=== PATIENT | male | born 1925 | race Caucasian/White ===

== ENCOUNTER 2017-03-25 01:14 | Inpatient (IN) | payer MEDICARE, BC ==
[2017-03-25] VITALS (8 sets, daily range): BP systolic 136–154; BP diastolic 70–77; PULSE 56–63; RESP 16–18; TEMP 98.6; Ht 167.6 cm; Wt 74.0 kg
[~2017-03-25] VITALS: Ht 167.6 cm; Wt 74.0 kg
[2017-03-25] MEDS ORDERED: niCARdipine-NS 0.1MG/ML DRIP 200 ML IV STA (01:29)
[2017-03-25] MEDS ORDERED: LABETALOL HCL 20MG INJ IV PRN (01:30)
--- NOTE | 2017-03-25 01:38 | RADRPT ---
PROCEDURE: CT Brain without contrast. CLINICAL INDICATION: Altered level of consciousness. TECHNIQUE: A CT of the brain was performed on a multislice detector CT scanner utilizing axial sec tions from the skull base through the vertex without contrast. Images were [facility] a [facility] [employer] PACS workstation. Exam CTDlvol = 44 mGy and DLP = 110 mGy-cm. One of the following 3 dose red uction techniques were used: Automated exposure control; adjustment of the mA and/or kV according to patient size; or use of iterative reconstruction technique. COMPARISON: None available FINDINGS: There is age appropriate central and peripheral atrophy. There is no midline shift. There is a mod erate degree of supratentorial periventricular and subcortical white matter hypodensities. There is no definite acute stroke. There is a 1.6 x 1.4 x 1.6 cm cortical and subcortical subcortical hyperd ense/acute intraparenchymal hemorrhage with minimal surrounding edema in the posterior left frontal lobe at the vertex.. There is no significant mass effect. There is no other intracranial hemorrhage or abnormal extra-axial fluid collection. There is a punctate left parietal cortical calcification. Visualized paranasal sinuses are clear. IMPRESSION: 1. Acute intraparenchymal left frontal hemorrhage near the vertex. Minimal surrounding edema. No si gnificant mass effect. 2. Nonspecific white matter changes most commonly seen with microvascular ischemic disease. 3. Nonspecific punctate left parietal cortical calcification most commonly seen post inflammatory o r infectious such as cysticercosis. Findings reported to Dr. Su on 03/25/2017 1:34 AM. RPTAT: HMVK .Blake Kahn MD, MD Date Time Electronically viewed and signed by .Blake Kahn MD, MD on 03/25/2017 01:38 .K/
[2017-03-25] MEDS ORDERED: niCARdipine-NS 0.1MG/ML DRIP 200 ML IV SCH (02:00)
[2017-03-25 02:09] LABS: BASOPHILS % 0.4 % (0.0-2.0); EOSINOPHILS # 0.1 10^3/ul (0.0-0.5); HEMATOCRIT 38.9 % (42.0-52.0); HEMOGLOBIN 13.1 g/dl (14.0-18.0); LYMPHOCYTES # 1.7 10^3/ul (0.8-2.9); LYMPHOCYTES % 24.6 % (15.0-51.0); MEAN CORPUSCULAR HEMOGLOBIN 32.6 pg (29.0-33.0); MEAN CORPUSCULAR HGB CONC 33.7 g/dl (32.0-37.0); MEAN CORPUSCULAR VOLUME 96.8 fl (82.0-101.0); MEAN PLATELET VOLUME 10.8 fl (7.4-10.4); MONOCYTE # 0.8 10^3/ul (0.3-0.9); MONOCYTES % 11.7 % (0.0-11.0); NEUTROPHILS % 60.7 % (39.0-77.0); PLATELET COUNT 205 10^3/UL (140-415); RED BLOOD COUNT 4.02 10^6/ul (4.70-6.10); RED CELL DISTRIBUTION WIDTH 12.9 % (11.5-14.5); WHITE BLOOD COUNT 6.8 10^3/ul (4.8-10.8)
[2017-03-25 02:23] LABS: INR 1.05; PROTIME 13.7 Sec (12.2-14.2); PT RATIO 1.1
[2017-03-25 02:24] LABS: PARTIAL THROMBOPLASTIN TIME 30.7 Sec (25.0-35.0)
[2017-03-25 02:25] LABS: ANION GAP 14 (8-16); BLOOD UREA NITROGEN 35 mg/dl (7-20); CALCIUM 9.4 mg/dl (8.4-10.2); CARBON DIOXIDE 26 mmol/L (21-31); CHLORIDE 103 mmol/L (97-110); GLUCOSE 97 mg/dl (70-220); POTASSIUM 4.6 mmol/L (3.5-5.1); SODIUM 138 mmol/L (135-144)
[2017-03-25] MEDS ORDERED: SOD CHLORIDE 0.9% 1,000 ML IV SCH (02:31)
[2017-03-25 02:36] LABS: TROPONIN-I < 0.012 ng/ml (0.00-0.12)
--- NOTE | 2017-03-25 02:39 | RADRPT ---
PROCEDURE: XR Chest. CLINICAL INDICATION: Shortness of breath. TECHNIQUE: AP Portable chest. COMPARISON: No pertinent prior examinations were submitted for comparison. FINDINGS: There is mild cardiomegaly. There is mild pulmonary vascular congestion. The osseous structures ar e unremarkable. IMPRESSION: Mild pulmonary vascular congestion. RPTAT: HIKT .Rohith Arce MD, MD Date Time Electronically viewed and signed by .Rohith Arce MD, MD on 03/25/2017 02:38 .T/
[2017-03-25 02:41] LABS: ADD UMIC NO; UR ASCORBIC ACID NEGATIVE (NEGATIVE); UR BILIRUBIN (Dip) NEGATIVE (NEGATIVE); UR BLOOD (Dip) NEGATIVE (NEGATIVE); UR CLARITY CLEAR (CLEAR); UR COLOR STRAW (YELLOW); UR GLUCOSE (Dip) NEGATIVE (NEGATIVE); UR KETONES (Dip) NEGATIVE (NEGATIVE); UR LEUKOCYTE ESTERASE (Dip) NEGATIVE Leu/ul (NEGATIVE); UR NITRITE (Dip) NEGATIVE (NEGATIVE); UR SPECIFIC GRAVITY (Dip) 1.008 (1.003-1.030); UR TOTAL PROTEIN (Dip) NEGATIVE (NEGATIVE); UR UROBILINOGEN (Dip) NEGATIVE (NEGATIVE)
[2017-03-25 02:52] LABS: BARBITURATES Negative (NEGATIVE); BENZODIAZEPINES Negative (NEGATIVE); CANNABINOIDS Negative (NEGATIVE); COCAINE Negative (NEGATIVE); OPIATES Negative (NEGATIVE)
[2017-03-25] MEDS ORDERED: ACETAMINOPHEN 325 MG TAB PO PRN (03:00)
[2017-03-25] MEDS ORDERED: ACETAMINOPHEN 650MG/20.3ML CUP PO PRN (03:00)
[2017-03-25] MEDS ORDERED: niCARdipine 25 MG in SOD CHLORIDE 0.9% 240 ML IV SCH (03:00)
[2017-03-25] MEDS ORDERED: LORAZEPAM 2 MG INJ IV PRN ×2 (03:00→21:00)
[2017-03-25] MEDS ORDERED: ONDANSETRON 4 MG INJ IV PRN (03:00)
[2017-03-25] MEDS ORDERED: DOCUSATE SODIUM 100 MG CAP PO PRN (03:00)
--- NOTE | 2017-03-25 03:04 | ERA ---
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 He states around midnight tonight he was tossing and turning and noticed that he could not move his hand. The patient denies any headache. He states that his primary care physician has asked him to stop all blood pressure medications for at least 1-2 months. He denies any chest pain or shortness of breath. No slurred speech. No other neurologic symptoms. ROS All systems reviewed and are negative except as per history of present illness. Allergies Allergies: Coded Allergies: No Known Allergy (Unverified , 03/25/17) PMhx/Soc History of Surgery: Yes (LOW BACK 1970S) Anesthesia Reaction: No Hx 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 Disorder: Yes (CVA 3 YRS AGO) Hx Respiratory Disorders: No Hx Cardiac Disorders: Yes (A-FIB) Hx Psychiatric Problems: No Hx Miscellaneous Medical Probl: Yes (DM 2) Hx Alcohol Use: Yes (OCCASIONAL BEER) Hx Substance Use: No Hx Tobacco Use: No Smoking Status: Never smoker FmHx Family History: No diabetes Physical Exam Vitals Vital Signs Date Time Temp Pulse Resp B/P Pulse Ox O2 Delivery O2 Flow Rate FiO2 03/25/17 02:45 66 12 130/71 96 Room Air 03/25/17 02:30 66 16 132/71 97 Room Air 03/25/17 02:15 68 18 148/76 94 Room Air 03/25/17 02:00 64 13 154/82 97 Room Air 03/25/17 01:46 60 14 199/106 98 Room Air 03/25/17 01:33 66 21 208/116 96 Room Air 03/25/17 01:15 97.7 63 21 195/101 99 03/25/17 01:15 97.7 60 21 195/101 99 Room Air Physical Exam General: Well developed, well nourished, no acute distress Head: Normocephalic, atraumatic Eyes: Pupils equally reactive, EOM intact ENT: Moist mucous membranes Neck: Supple, no lymphadenopathy Respiratory: Lungs clear bilaterally, no distress Cardiovascular: RRR, no murmurs, rubs, or gallops Abdominal: Soft, non-tender, non-distended, no peritoneal signs : Deferred MSK: The patient has decreased function of the right hand that seems limited in range of motion and somewhat flaccid. Neurologic: Alert and oriented, moving all extremities, normal speech, the patient has inability to move his right hand. Otherwise, no pronator drift, no cerebellar signs, patient has facial symmetry NIHSS: 0-1 skin: No rash Psych: Normal mood Result Diagram: 03/25/17 0138 03/25/178 Results 24 hrs Laboratory Tests Test 03/25/17 01:35 03/25/17 01:38 03/25/17 01:51 Urine Color STRAW Urine Clarity CLEAR Urine pH 7.0 Urine Specific [place] 1.008 Urine Ketones NEGATIVEmg/dL Urine Nitrite NEGATIVEmg/dL Urine Bilirubin NEGATIVEmg/dL Urine Urobilinogen NEGATIVEmg/dL Urine Leukocyte Esterase NEGATIVELeu/ul Urine Hemoglobin NEGATIVEmg/dL Urine Glucose NEGATIVEmg/dL Urine Total Protein NEGATIVEmg/dl Urine Opiates Screen Negative Urine Barbiturates Negative Urine Amphetamines Screen Negative Urine Benzodiazepines Screen Negative Urine Cocaine Screen Negative Urine Cannabinoids Negative White Blood Count 6.810^3/ul Red Blood Count 4.0210^6/ul Hemoglobin 13.1g/dl Hematocrit 38.9% Mean Corpuscular Volume 96.8fl Mean Corpuscular Hemoglobin 32.6pg Mean Corpuscular Hemoglobin Concent 33.7g/dl Red Cell Distribution Width 12.9% Platelet Count 49315^3/UL Mean Platelet Volume 10.8fl Neutrophils % 60.7% Lymphocytes % 24.6% Monocytes % 11.7% Eosinophils % 2.0% Basophils % 0.4% Nucleated Red Blood Cells % 0.0/100WBC Neutrophils # (Manual) 4.110^3/ul Lymphocytes # 1.710^3/ul Monocytes # 0.810^3/ul Eosinophils # 0.110^3/ul Basophils # 0.010^3/ul Nucleated Red Blood Cells # 0.010^3/ul Prothrombin Time 13.7Sec Prothrombin Time Ratio 1.1 INR International Normalized Ratio 1.05 Activated Partial Thromboplast Time 30.7Sec Sodium Level 138mmol/L Potassium Level 4.6mmol/L Chloride Level 103mmol/L Carbon Dioxide Level 26mmol/L Anion Gap 14 Blood Urea Nitrogen 35mg/dl Creatinine 1.90mg/dl Glucose Level 97mg/dl Hemoglobin A1c 5.8% Calcium Level 9.4mg/dl Troponin I < 0.012ng/ml Bedside Glucose 103mg/dL Current Medications Medications (Trade) Dose Ordered Sig/Mary Route PRN Reason Start Time Stop Time Status Last Admin Dose Admin Labetalol HCl 20 mg 20 mg Q20M PRN IV ELEVATED BLOOD PRESSURE 03/25/17 01:30 03/25/17 01:30 DC Nicardipine HCl 200 ml @ 50 mls/hr ONCE STAT IV 03/25/17 01:29 03/25/17 01:36 DC 03/25/17 01:45 Nicardipine HCl 200 ml @ 50 mls/hr TITRATE IV 03/25/17 02:00 Sodium Chloride (NS) 1,000 ml @ 70 mls/hr [id number] IV 03/25/17 02:31 03/25/17 02:57 Ondansetron HCl (Zofran Inj) 4 mg Q6H PRN IV NAUSEA AND/OR VOMITING 03/25/17 03:00 Acetaminophen (Tylenol Liquid) 650 mg Q6H PRN PO PAIN LEVEL 1-3 OR FEVER 03/25/17 03:00 Docusate Sodium (Colace) 100 mg Q12H PRN PO CONSTIPATION 03/25/17 03:00 Bisacodyl (Dulcolax) 5 mg DAILY PRN PO CONSTIPATION 03/25/17 03:00 Pantoprazole 40 mg 40 mg DAILY@06 IV 03/25/17 06:00 Nicardipine HCl/ Sodium Chloride (Cardene Iv/NS) 250 ml @ 50 mls/hr PER PROTOCOL IV 03/25/17 03:00 Lorazepam (Ativan) 2 mg PRN PRN IV SEIZURES 03/25/17 03:00 Acetaminophen (Tylenol Tab) 650 mg Q4H PRN PO TEMP GREATER THAN 99.6F 03/25/17 03:00 Docusate Sodium (Colace) 100 mg BID PO 03/25/17 09:00 Procedures/MDM EKG, MONITORS, & DIAGNOSTIC IMAGING: EKG: I reviewed and interpreted a 12-lead EKG. Rhythm: A. fib, rate controlled ectopy: None Arrhythmia: None Intervals: Right bundle branch block ST segments: No elevations or depressions T waves: No contiguous inversions Interpretation: No acute cardiac ischemia Chest x-ray: I reviewed and interpreted a 1 view of the chest Mediastinum: No enlargement Cardiac silhouette: No cardiomegaly Airspace: Clear lung gomez bilaterally without evidence of pneumothorax Bones: No evidence of fracture Interpretation: No acute cardiopulmonary process CT Brain: IMPRESSION: 1. Acute intraparenchymal left frontal hemorrhage near the vertex. Minimal surrounding edema. No significant mass effect. 2. Nonspecific white matter changes most commonly seen with microvascular ischemic disease. 3. Nonspecific punctate left parietal cortical calcification most commonly seen post inflammatory or infectious such as cysticercosis. Findings reported to Dr. Su on 03/25/2017 1:34 AM. RPTAT: HMVK LAB INTERPRETATION: No evidence of coagulopathy MEDICAL DECISION MAKING: The patient presents to the emergency room with acute neurologic deficit starting approximately 1-1/2 hours prior to arrival. This is concerning for stroke. Stroke code activated. Significant hypertension concerning for intracranial hemorrhage. ER COURSE: Stroke assessment and timing: Onset of symptoms: Midnight Arrival to ED: 1:14 AM Stroke code activation: 1:15 AM Patient taken to CT scan: 1:18 AM Patient returns from CT: 1:32 AM Initial neurology evaluation: Not required Conversation(s) with neurology: Not required, initial conversation and Dr. Burks notified at 1:33 AM NIHSS: 0-1 TPA decision-making: Not indicated given intracranial hemorrhage and hemorrhagic stroke Stroke neurologist on-call: Dr. Burks Neurosurgeon on-call, Dr. Zamora conversation at 1:[address] in 6 hours, ICU level of care, blood pressure less than 160, no CTA Critical Care Note: Total time: 58 minutes Indication/Organ System Threat: Acute neurologic deficit and stroke code activation that requires emergent evaluation and assessment to prevent neurologic compromising collapse. I spent the above amount of critical care time with the patient, not including billable procedures. This included chart review, consultations, repeat bedside evaluations, and titration of appropriate medications to prevent cardiopulmonary or respiratory collapse. The patient was started on a Cardene drip with appropriate control of his blood pressure. He continues to mentate well and protect his airway. The patient has no evidence of coagulopathy, no indication for [facility] or platelet transfusion. I kept the patient and/or family informed of laboratory and diagnostic imaging results throughout the emergency room course. DISPOSITION PLAN: Intensive care unit CONSULTATION: Accepting care team and consultations: I discussed the current laboratory data, diagnostic imaging and emergency care provided. Admitting team: Dr. Dillard Admitting team indication: Insurance directed Consulting services: As documented above Departure Diagnosis: Primary Impression: Hemorrhagic stroke Additional Impression: Hypertensive emergency Condition: Critical BOBBI SU MD Mar 25, 2017 03:03
[2017-03-25] MEDS ORDERED: CEFU500T45 PO (04:14)
[2017-03-25] MEDS ORDERED: AMIO200T2 PO (04:14)
[2017-03-25] MEDS ORDERED: LEVO100T87 PO (04:14)
[2017-03-25] MEDS ORDERED: SIMV20TA PO (04:14)
[2017-03-25] MEDS ORDERED: TAMS0.4C2 PO (04:14)
[2017-03-25] MEDS: PANTOPRAZOLE 40 MG INJ IV SCH (05:42)
--- NOTE | 2017-03-25 05:53 | HP ---
Date/Time of Note Date/Time of Note DATE: 03/25/17 TIME: 05:43 Assessment/Plan VTE Prophylaxis VTE Prophylaxis Intervention: SCD's Assessment/Plan Chief Complaint/Hosp Course This is a 89-year-old male being admitted to the ICU floor for: #1. acute intraparenchymal left frontal hemorrhage: Symptoms of right hand limited range of motion. Likely secondary to uncontrolled hypertension. Patient has been off of blood pressure medications for the past 1-2 months. At the current time will keep patient on nicardipine drip to maintain systolic blood pressure less than 160. Keep patient n.p.o. Will transfer patient to ICU for closer monitoring. Repeat CAT scan of the brain in 6 hours without contrast. Neurosurgery on board. #2 uncontrolled hypertension: Once patient's acute condition is stabilized will need to likely reinitiate blood pressure control with medications. #3 hypothyroidism: Check TSH, resume levothyroxine after her swallow eval #4 atrial fibrillation: rate controlled, not an antiocoagulation. resume amiodarone once passes swallow eval. #5 BPH: Hold Flomax for now secondary to blood pressure effects. #6 pulmonary Vascular congestion: possibly secondary to uncontrolled htn, however will check bnp and echocardiogram. #6 hyperlipidemia: Resume statin once patient passes swallow eval. #7 DVT and GI prophylaxis: SCDs, acid mckenna Further treatment strategy will be implemented as per the clinical course Problems: HPI/ROS Admit Date/Time Admit Date/Time Hx of Present Illness Chief complaint: Right hand weakness This is an 89-year-old male history of stroke, atrial fibrillation, no longer taking anticoagulation who presents to the emergency room with loss of function of his right hand. He states around midnight tonight he was tossing and turning in bed and noticed that he could not move his right hand. He denies any headaches. He states that his primary care physician has asked him to stop all blood pressure medications and he has not been taking them for approximately the last 1-2 months. he denies any chest pain or shortness of breath. No slurred speech. He denies any other further neurological symptoms. Allergies: NKDA Medications: See PADMAJA HAMEED Const: As per HPI Eyes : No pain discharge or redness or change in visual acuity ENT: No pain, sore throat, congestion, congestion, dysphagia or discharge Respiratory: No shortness of breath, cough, sputum, wheezing, or pleuritic pain Cardiovascular: No chest pain, palpitation, PND, or edema GI : no change in appetite, abdominal pain, nausea, vomiting, diarrhea, constipation, or change in the color his stool Genitourinary: No dysuria, hematuria, flank pain , discharge or CVA tenderness Musculoskeletal: As per HPI Skin: No rash, bruising or hives Neuro: As per HPI Endocrine: No polyuria, polydipsia, temperature intolerance Psych: No hallucination, depression, anxiety or suicidal ideation PMH/Family/Social Past Medical History Previous hemorrhagic stroke, hypothyroidism, BPH, atrial fibrillation, hypertension, hyperlipidemia Past Surgical History Lower back surgery Family History Significant Family History: cancer (Lung cancer: Mom) Social History Alcohol Use: none Smoking Status: Never smoker Drug Use: none Exam/Review of Systems Vital Signs Vitals Vital Signs Date Time Temp Pulse Resp B/P Pulse Ox O2 Delivery O2 Flow Rate FiO2 03/25/17 04:30 68 17 119/71 97 Room Air 03/25/17 01:15 97.7 Exam Exam General: Patient is a well-developed male lying in bed in no acute distress HEENT: Atraumatic, normocephalic. The pupils are equal, round and reactive. Extraocular motor are intact Neck: Supple with full range of motion. No rigidity or meningismus Chest: Nontender Lungs: Clear to auscultation bilaterally no crackles rales or wheezing Heart: Normal S1-S2, Regular rhythm and rate. No murmur, S3, or S4 Abdomen: Soft , nontender, nondistended , bowel sounds are present. No guarding no rebound tenderness , No masses or organomegaly. No costovertebral temporal angle mass Extremities: Right hand limited range of motion Neurologic: Normal mental status, speech normal, cranial nerves II through XII are intact, motor and sensory are intact, right hand limited range of motion Additional Comments PROCEDURE: CT Brain without contrast. CLINICAL INDICATION: Altered level of consciousness. TECHNIQUE: A CT of the brain was performed on a multislice detector CT scanner utilizing axial sections from the skull base through the vertex without contrast. Images were reviewed on a high-resolution PACS workstation. Exam CTDlvol = 44 mGy and DLP = 110 mGy-cm. One of the following 3 dose reduction techniques were used: Automated exposure control; adjustment of the mA and/or kV according to patient size; or use of iterative reconstruction technique. COMPARISON: None available FINDINGS: There is age appropriate central and peripheral atrophy. There is no midline shift. There is a moderate degree of supratentorial periventricular and subcortical white matter hypodensities. There is no definite acute stroke. There is a 1.6 x 1.4 x 1.6 cm cortical and subcortical subcortical hyperdense/ acute intraparenchymal hemorrhage with minimal surrounding edema in the posterior left frontal lobe at the vertex.. There is no significant mass effect. There is no other intracranial hemorrhage or abnormal extra-axial fluid collection. There is a punctate left parietal cortical calcification. Visualized paranasal sinuses are clear. IMPRESSION: 1. Acute intraparenchymal left frontal hemorrhage near the vertex. Minimal surrounding edema. No significant mass effect. 2. Nonspecific white matter changes most commonly seen with microvascular ischemic disease. 3. Nonspecific punctate left parietal cortical calcification most commonly seen post inflammatory or infectious such as cysticercosis. Findings reported to Dr. Su on 03/25/2017 1:34 AM. RPTAT: HMVK .Blake Kahn MD, MD Date Time Electronically viewed and signed by .Blake Kahn MD, MD on 03/25/2017 01:38 .K/ CC: BOBBI SU MD PROCEDURE: XR Chest. CLINICAL INDICATION: Shortness of breath. TECHNIQUE: AP Portable chest. COMPARISON: No pertinent prior examinations were submitted for comparison. FINDINGS: There is mild cardiomegaly. There is mild pulmonary vascular congestion. The osseous structures are unremarkable. IMPRESSION: Mild pulmonary vascular congestion. RPTAT: HIKT .Rohith Arce MD, MD Date Time Electronically viewed and signed by .Rohith Arce MD, MD on 03/25/2017 02:38 .T/ CC: BOBBI SU MD EKG: . Rhythm: A. fib, rate controlled ectopy: None Arrhythmia: None Intervals: Right bundle branch block ST segments: No elevations or depressions T waves: No contiguous inversions Interpretation: No acute cardiac ischemia As per ED physician documentation Labs Result Diagram: 03/25/178 03/25/17137 Medications Medications Current Medications Nicardipine HCl 200 ml @ 50 mls/hr TITRATE IV ; Start 03/25/17 at 02:00 Sodium Chloride (NS) 1,000 ml @ 70 mls/hr [id number] IV Last administered on 02:57; Admin Dose 70 MLS/HR; Start 03/25/17 at 02:31 Ondansetron HCl (Zofran Inj) 4 mg Q6H PRN IV NAUSEA AND/OR VOMITING; Start 03/25 at 03:00 Acetaminophen (Tylenol Liquid) 650 mg Q6H PRN PO PAIN LEVEL 1-3 OR FEVER; Start 03/25/17 at 03:00 Docusate Sodium (Colace) 100 mg Q12H PRN PO CONSTIPATION; Start 03/25/17 at 03: 00 Bisacodyl (Dulcolax) 5 mg DAILY PRN PO CONSTIPATION; Start 03/25/17 at 03:00 Pantoprazole (Protonix Iv) 40 mg DAILY@06 IV Last administered on 03/25/17 05: 42; Admin Dose 40 MG; Start 03/25/17 at 06:00 Lorazepam (Ativan) 2 mg PRN PRN IV SEIZURES; Start 03/25/17 at 03:00 Acetaminophen (Tylenol Tab) 650 mg Q4H PRN PO TEMP GREATER THAN 99.6F; Start at 03:00 Docusate Sodium (Colace) 100 mg BID PO ; Start 03/25/17 at 09:00 RUTHIE ROBLES Mar 25, 2017 05:53
--- NOTE | 2017-03-25 07:51 | RADRPT ---
PROCEDURE: Noncontrast CT Head. CLINICAL INDICATION: Intracerebral hemorrhage follow-up. TECHNIQUE: Noncontrast CT of the head was obtained. The administered radiation dose was CTDI vol = 43.05 mGy, DLP = 720.23 mGy-cm. One or more of the following dose reduction techniques were used: Au tomated exposure control, Adjustment of the mA and/or kV according to patient size, or Use of iterat jose reconstruction technique. COMPARISON: CT brain 03/25/2017 at 01:23 a.m. FINDINGS: There has been interval there is slight increase in size of the previously seen left posterior front al convexity subcortical intracerebral hemorrhage which currently measures 18 mm x 13 mm x 19 mm (pr eviously 16 mm x 11 mm x 19 mm). Mild surrounding vasogenic edema and mild local mass effect is very slightly increased. There is no midline shift. No new areas of acute intracranial hemorrhage are se en. No abnormal extra-axial collection is seen. The cerebral hobbs-white matter differentiation appea rs preserved. There is mild to moderate diffuse cerebral volume loss. Patchy low attenuation in the periventricular and deep cerebral white matter, nonspecific but sugges tive of moderate chronic microvascular ischemic change. A cortical based punctate calcification in the the left parietal lobe is redemonstrated and nonspeci fic, possibly related to or sequelae of prior inflammation/infection. There is mild diffuse cerebellar volume loss, likely age-related. The brainstem is grossly unremarka ble. The basal cisterns are preserved. There is calcific intracranial atherosclerotic disease involving the internal carotid arteries and p roximal vertebral arteries bilaterally. Limited evaluation of the partially imaged orbits is normal for senescent scleral hyaline plaques. There is mild mucosal thickening in the bilateral ethmoid sinuses. The visualized mastoid air cells are clear. No acute fracture or suspicious osseous lesion is identified. IMPRESSION: 1. Interval minimal increase in size of the previously seen left posterior frontal convexity subcort ical intracerebral hemorrhage, currently measuring 18 mm x 13 mm x 19 mm (previously 16 mm x 11 mm x 19 mm). Mild surrounding vasogenic edema and mild local mass effect is very slightly increased. No midline shift. 2. Evidence of moderate chronic microvascular ischemic change. 3. Redemonstrated nonspecific punctate left parietal cortical calcification, possibly related to bree or inflammation/infection, such as cysticercosis. 4. Intracranial atherosclerotic disease. RPTAT: QQ Leroy Tamayo, Physician Date Time Electronically viewed and signed by Leroy Tamayo, Physician on 03/25/2017 07:51 /
[2017-03-25] MEDS: DOCUSATE SODIUM 100 MG CAP PO SCH ×2 (11:42→21:00)
--- NOTE | 2017-03-25 12:04 | CONS ---
Date/Time of Note Date/Time of Note DATE: 03/25/17 TIME: 11:56 Assessment/Plan Assessment/Plan Chief Complaint/Hosp Course 89 year old male with history of afib prior hemorrhagic CVA in setting of AC now off anticoagulation and antiplatelet agents p/w right hand weakness in setting of left frontal convexity ICH. Suspect possible amyloid angiopathy as etiology, would recommend also obtaining further vascular imaging to rule out possibility of underlying vascular malformation/mass Recommendations: MRI Brain with and without contrast- include GRE sequences MRA Head and Neck without contrast SBP <160 is reasonable avoid antiplatelets and AC continue frequent neurochecks DVT ppx SCD ICU admission planned Problems: Consultation Date/Type/Reason Admit Date/Time 03/25/17 Date of Consultation: Mar 25, 2017 Type of Consultation: Neurology Reason for Consultation ICH Referring Provider: BUSHRA GRAHAM MD Hx of Present Illness 89 year old male with history of afib was previously on Coumadin that was stopped due to hemorrhagic CVA that occurred over 3 years ago, since then has also been off antiplatelet agent. He has residual left sided visual deficits from the previous stroke. He now presents with a sudden onset of right hand weakness that began overnight. For the past month or so patient admits he has been off his BP medications which was advised by his PMD: Dr. Reno, reportedly made him feel unwell. CTH showed a left posterior frontal convexity subcortical ICH, repeat Head CT with interval minimal increase in size currently measures 18 mm x 13 mm x 19 mm. mild surrounding edema with mild local mass effect, no midline shift no IVH. right hand weakness dysarthria Social History Alcohol Use: none Smoking Status: Never smoker Drug Use: none Exam/Review of Systems Vital Signs Vitals Vital Signs Date Time Temp Pulse Resp B/P Pulse Ox O2 Delivery O2 Flow Rate FiO2 03/25/17 09:00 98.6 63 18 136/80 96 Nasal Cannula 2.0 Exam awake and alert oriented x3 follows all commands no aphasia CN: JESSICA, blinks to threat appropriately no facial asymmetry mild dysarthria Motor: right hand 0/5 proximal strength in biceps and triceps is full 5/5 otherwise strength in RLE and LUE and LLE 5/5 Coordination: unable to perform on right due to weakness Sensory is intact throughout Results Result Diagram: 03/25/17 0138 03/25/178 Results 24 hrs Laboratory Tests Test 03/25/17 01:35 03/25/17 01:38 03/25/17 01:51 Urine Color STRAW Urine Clarity CLEAR Urine pH 7.0 Urine Specific [place] 1.008 Urine Ketones NEGATIVE Urine Nitrite NEGATIVE Urine Bilirubin NEGATIVE Urine Urobilinogen NEGATIVE Urine Leukocyte Esterase NEGATIVE Urine Hemoglobin NEGATIVE Urine Glucose NEGATIVE Urine Total Protein NEGATIVE Urine Opiates Screen Negative Urine Barbiturates Negative Urine Amphetamines Screen Negative Urine Benzodiazepines Screen Negative Urine Cocaine Screen Negative Urine Cannabinoids Negative White Blood Count 6.8 Red Blood Count 4.02 L Hemoglobin 13.1 L Hematocrit 38.9 L Mean Corpuscular Volume 96.8 Mean Corpuscular Hemoglobin 32.6 Mean Corpuscular Hemoglobin Concent 33.7 Red Cell Distribution Width 12.9 Platelet Count 205 Mean Platelet Volume 10.8 H Neutrophils % 60.7 Lymphocytes % 24.6 Monocytes % 11.7 H Eosinophils % 2.0 Basophils % 0.4 Nucleated Red Blood Cells % 0.0 Neutrophils # (Manual) 4.1 Lymphocytes # 1.7 Monocytes # 0.8 Eosinophils # 0.1 Basophils # 0.0 Nucleated Red Blood Cells # 0.0 Prothrombin Time 13.7 Prothrombin Time Ratio 1.1 INR International Normalized Ratio 1.05 Activated Partial Thromboplast Time 30.7 Sodium Level 138 Potassium Level 4.6 Chloride Level 103 Carbon Dioxide Level 26 Anion Gap 14 Blood Urea Nitrogen 35 H Creatinine 1.90 H Glucose Level 97 Hemoglobin A1c 5.8 Calcium Level 9.4 Troponin I < 0.012 Bedside Glucose 103 Medications Medications Current Medications Nicardipine HCl (Cardene Iv) 200 ml @ 50 mls/hr TITRATE IV ; Start 03/25/17 at 02:00 Ondansetron HCl (Zofran Inj) 4 mg Q6H PRN IV NAUSEA AND/OR VOMITING; Start 03/25 at 03:00 Acetaminophen (Tylenol Liquid) 650 mg Q6H PRN PO PAIN LEVEL 1-3 OR FEVER; Start 03/25/17 at 03:00 Docusate Sodium (Colace) 100 mg Q12H PRN PO CONSTIPATION; Start 03/25/17 at 03: 00 Bisacodyl (Dulcolax) 5 mg DAILY PRN PO CONSTIPATION; Start 03/25/17 at 03:00 Pantoprazole (Protonix Iv) 40 mg DAILY@06 IV Last administered on 03/25/17t 05: 42; Admin Dose 40 MG; Start 03/25/17 at 06:00 Lorazepam (Ativan) 2 mg PRN PRN IV SEIZURES; Start 03/25/17 at 03:00 Acetaminophen (Tylenol Tab) 650 mg Q4H PRN PO TEMP GREATER THAN 99.6F; Start at 03:00 Docusate Sodium (Colace) 100 mg BID PO Last administered on 03/25/17 11:42; Admin Dose 100 MG; Start 03/25/17 at 09:00 STEPHAN PALOMINO MD Mar 25, 2017 12:04
--- NOTE | 2017-03-25 13:41 | RADRPT ---
Echocardiogram Report Patient Name: JESSICA ROPER Gender: Male Date: 1925 Study Date: 25-Mar-2017 Certified Ophthalmic Surgical Assistant: Av Zarate RDCS Location: [facility] Ref. Physician: RUTHIE ROBLES Quality: Adequate Procedures: Transthoracic echocardiogram with complete 2D, M-Mode, and doppler examination. Indications: Pulm vascular congestion on xray. 2D/M Mode Doppler Measurement Value Normal Ranges Measurement Value Normal Ranges LVIDd 2D 3.6 3.5 - 5.6 cm AV Peak Elpidio 1.6 m/sec LVIDs 2D 2.1 2.1 - 4.1 cm AV Peak PG 10.1 mmHg LVPWd 2D 1.1 0.6 - 1.1 cm AI Peak PG 47.5 mmHg IVSd 2D 0.9 0.6 - 1.1 cm AI Peak Elpidio 3.3 m/sec AoR Diam 2D 3.0 2.0 - 3.7 cm AI PHT 486.2 msec EDV 2D 54.3 cm3 LVOT Peak Elpidio 1.4 m/sec ESV 2D 9.6 cm3 LVOT Peak PG 8.2 mmHg LA Dimen 2D 3.7 2.3 - 4.0 cm MV E Peak Elpidio 0.8 m/sec MV A Peak Elpidio 1.2 m/sec MV E/A 0.6 MV Decel Time 309 msec MV Decel [place] 2 MV E/A 0.6 TR Peak Elpidio 2.1 m/sec TR Peak PG 17.8 mmHg RVSP 26.0 mmHg Findings Left Ventricle: Hyperdynamic left ventricular systolic function. Normal left ventricular cavity size. Normal left ventricular wall thickness. Ejection fraction is visually estimated at 70 %. Tissue Doppler/Mitral Doppler indices are consistent with impaired relaxation (Stage I diastolic dysfunction). Right Ventricle: Normal right ventricular size. Normal right ventricular systolic function. Left Atrium: There is moderate enlargement of left atrium. Right Atrium: The right atrium is normal in size. Mitral Valve: Mild mitral leaflet calcification. Moderate mitral annular calcification. Mild mitral valve regurgitation. Aortic Valve: No hemodynamically significant aortic stenosis by doppler. Aortic cusps appear mildly calcified. Mild aortic valve regurgitation. Tricuspid Valve: Normal appearance of the tricuspid valve. Estimated peak PA systolic pressure 26 mmHg. There is mild tricuspid regurgitation. Pulmonic Valve: Normal pulmonic valve appearance. Pericardium: Normal pericardium with no significant pericardial effusion. Aorta: Normal aortic root. IVC: The IVC is not well visualized. Conclusions 1.Hyperdynamic left ventricular systolic function. Normal left ventricular cavity size. Normal left ventricular wall thickness. Ejection fraction is visually estimated at 70 %. Tissue Doppler/Mitral Doppler indices are consistent with impaired relaxation (Stage I diastolic dysfunction). 2.Normal right ventricular size. Normal right ventricular systolic function. 3.There is moderate enlargement of left atrium. 4.The right atrium is normal in size. 5.Mild mitral valve regurgitation. 6.No hemodynamically significant aortic stenosis by doppler. Mild aortic valve regurgitation. 7.Estimated peak PA systolic pressure 26 mmHg. There is mild tricuspid regurgitation. 8.Normal pericardium with no significant pericardial effusion. Electronically Signed By: Blake Mixon 25-Mar-2017 13:40:32 -0700 Patient Name: JESSICA ROPER Study Date: 25-Mar-2017 [id number]
[2017-03-25] MEDS: NIFEdipine 10 MG CAP PO SCH (17:52)
[2017-03-25] MEDS ORDERED: LORAZEPAM 2 MG INJ IV ONE ×2 (20:30→23:00)
[2017-03-26] VITALS (12 sets, daily range): BP systolic 117–168; BP diastolic 56–82; PULSE 50–70; RESP 20
--- NOTE | 2017-03-26 | RADRPT ---
PROCEDURE: CT Brain without contrast. CLINICAL INDICATION: Neurologic deficit TECHNIQUE: A CT of the brain was performed on a GE LoglypeTruevision 64-slice CT scanner utilizing axial imaging from the skull base through the vertex without IV contrast. Multiplanar reformatted images were made. Images were reviewed on a PACS workstation. The CTDIvol is 43.30 mGy and the DLP is 892 .24 mGycm. One of the following 3 does reduction techniques were used during this CT examination: 1) Automated exposure control 2) Adjustment of the mA +/- kV according to patient size or 3) Use of iterative reconstruction technique COMPARISON: 03/25/[address] FINDINGS: No significant interval change is noted in the left frontal hematoma involving the posterior left ravi perior frontal gyrus. This measures 1.9 cm AP by 1.3 cm in transverse dimensions and is stable from prior CT. Mild sulcal effacement is noted locally without evidence for midline shift or herniation.. No extra-axial fluid collection is seen. The ventricles and sulci are age appropriate. Confluent d ecreased attenuation is present in the bilateral subcortical white matter, centrum semiovale, and bi lateral periventricular white matter compatible with moderate chronic microvascular ischemic disease . Foci of decreased attenuation are also noted in the bilateral basal ganglia and thalami compatible with chronic lacunar infarcts. The previously described punctate calcification in the left parietal cortex is compatible with prior neurocysticercosis. The visualized scalp and calvarium are normal. Senescent calcifications are present of the bilateral orbits. The bilateral paranasal sinuses, mastoid air cells and middle ear cavities are clear. IMPRESSION: 1. No significant interval change in the acute left frontal convexity hematoma measuring 1.9 cm AP by 1.3 cm transverse dimensions. 2. Mild chronic left greater than right centrum semiovale and periventricular white matter 3. Mild diffuse volume loss. 4. Mild atherosclerotic vascular disease RPTAT: HDC .Ct Short MD, Date Time Electronically viewed and signed by .Ct Short MD, MD on 03/25/2017 23:59 .C/
[2017-03-26] MEDS: NIFEdipine 10 MG CAP PO SCH ×3 (05:47→12:49)
[2017-03-26] MEDS: PANTOPRAZOLE 40 MG INJ IV SCH (05:47)
[2017-03-26] MEDS: DOCUSATE SODIUM 100 MG CAP PO SCH ×2 (09:33→21:42)
--- NOTE | 2017-03-26 09:50 | CONS ---
Date/Time of Note Date/Time of Note DATE: 03/26/17 TIME: 09:49 Consult Date/Type/Reason Admit Date/Time Mar 25, 2017 at 10:53 Initial Consult Date 03/25/17 Type of Consultation: Neurology Reason for Consultation ICH Ordering Provider: BUSHRA GRAHAM MD Subjective stable overnight no acute issues repeat Head CT done- stable Objective Vital Signs Date Time Temp Pulse Resp B/P Pulse Ox O2 Delivery O2 Flow Rate FiO2 03/26/17 08:13 97.9 60 20 117/61 99 03/25/17 22:31 Nasal Cannula 2.0 Intake and Output 03/25/17 03/25/17 03/26/17 14:59 22:59 06:59 Intake Total 50 ml Output Total 1000 ml Balance -950 ml Exam awake and alert oriented x3 follows all commands no aphasia CN: JESSICA, blinks to threat appropriately no facial asymmetry mild dysarthria Motor: right hand 0/5 proximal strength in biceps and triceps is full 5/5 otherwise strength in RLE and LUE and LLE 5/5 Coordination: unable to perform on right due to weakness Sensory is intact throughout Results/Medications Result Diagram: 03/25/1713703/25/178 Results 24 hrs Laboratory Tests Test 03/25/17 11:35 B-Type Natriuretic Peptide 545 H Medications Current Medications Ondansetron HCl (Zofran Inj) 4 mg Q6H PRN IV NAUSEA AND/OR VOMITING; Start 03/25 at 03:00 Acetaminophen (Tylenol Liquid) 650 mg Q6H PRN PO PAIN LEVEL 1-3 OR FEVER; Start 03/25/17 at 03:00 Docusate Sodium (Colace) 100 mg Q12H PRN PO CONSTIPATION; Start 03/25/17 at 03: 00 Bisacodyl (Dulcolax) 5 mg DAILY PRN PO CONSTIPATION; Start 03/25/17 at 03:00 Pantoprazole (Protonix Iv) 40 mg DAILY@06 IV Last administered on 03/26/17 05: 47; Admin Dose 40 MG; Start 03/25/17 at 06:00 Acetaminophen (Tylenol Tab) 650 mg Q4H PRN PO TEMP GREATER THAN 99.6F; Start at 03:00 Docusate Sodium (Colace) 100 mg BID PO Last administered on 03/26/17 09:33; Admin Dose 100 MG; Start 03/25/17 at 09:00 Nifedipine (Procardia) 10 mg Q6 PO Last administered on 03/26/17 05:47; Admin Dose 10 MG; Start 03/25/17 at 17:00 Lorazepam (Ativan) 2 mg Q4 PRN IV AGITATION/ANXIETY; Start 03/25/17 at 21:00 Assessment/Plan Chief Complaint/Hosp Course 89 year old male with history of afib prior hemorrhagic CVA in setting of AC now off anticoagulation and antiplatelet agents p/w right hand weakness in setting of left frontal convexity ICH. Suspect possible amyloid angiopathy as etiology, would recommend also obtaining further vascular imaging to rule out possibility of underlying vascular malformation/mass Repeat Head CT: IMPRESSION: 1. No significant interval change in the acute left frontal convexity hematoma measuring 1.9 cm AP by 1.3 cm transverse dimensions. 2. Mild chronic left greater than right centrum semiovale and periventricular white matter 3. Mild diffuse volume loss. 4. Mild atherosclerotic vascular disease Recommendations: MRI Brain with and without contrast- include GRE sequences MRA Head and Neck without contrast SBP <160 is reasonable avoid antiplatelets and AC continue frequent neurochecks DVT ppx SCD Problems: STEPHAN PALOMINO MD Mar 26, 2017 09:50
--- NOTE | 2017-03-26 11:21 | CONS ---
DATE OF ADMISSION: 03/25/2017 DATE OF CONSULTATION: 03/26/2017 REASON FOR CONSULTATION: Acute kidney injury, CKD. HISTORY OF PRESENT ILLNESS: This is a 89-year-old male with a past medical history of CVA, history of a-fib, who presents to [facility] with complaints of right hand weakness. The patient stated around midnight, on day of admission, he was noted to be need to remove his right hand. Denies any headache. The patient denies any slurred speech. The patient came to the emergency room and upon arrival the patient had a CT scan of the brain, which showed findings of acute left frontal hemorrhage, with mild surrounding edema, no mass-effect. Nonspecific white matter changes. The patient, in the emergency room, was placed on nicardipine drip injury as he was hypotensive. The patient was admitted to telemetry and was evaluated by Neurology. No other acute events noted. No hemoptysis, hematemesis, or hematochezia. PAST MEDICAL HISTORY: History of hypertension, hypothyroidism, a- fib, BPH, and possible chronic kidney disease. ALLERGIES: NO KNOWN DRUG ALLERGIES. PAST SURGICAL HISTORY: The patient lower back surgery. FAMILY HISTORY: Noncontributory. MEDICATION: Reviewed. REVIEW OF SYSTEMS: A 14 point review of systems conducted. Pertinent positives as mentioned in HPI, otherwise negative. PHYSICAL EXAMINATION: VITAL SIGNS: Blood pressure 117/61, respirations 20, pulse 60, and temperature 97.9. HEENT: Head is normocephalic. NECK: Supple. HEART: Regular rate. LUNGS: Diminished breath sounds at the base. ABDOMEN: Soft. Nontender to palpation. No rebound or guarding. EXTREMITIES: Negative for clubbing, cyanosis. No edema. DERMATOLOGIC: No rashes. MUSCULOSKELETAL: No joint effusions. NEUROLOGIC: The patient has weakness in his right hand. IMPRESSION AND PLAN: This is an 89-year-old male presents with: 1. Non-oliguric acute kidney injury on top of chronic kidney disease. Etiology is likely secondary to hemodynamics due to hypertensive urgency. Questionable tubular injury. The patient's initial urinalysis is bland and shows no evidence of active sediment. No proteinuria. Plan at this point is to repeat a urinalysis with micro analysis. Will check urine electrolytes. Will check renal ultrasound. Would continue current medical management. Hypertension, avoid significant hemodynamics fluctuations if possible. Otherwise, continue supportive care. Renally dose medications. Avoid nephrotoxins. 2. Anemia. Monitor hemoglobin and hematocrit levels. 3. Mineral bone disorder. Monitor calcium and phosphorus levels. 4. Hypertension. Blood pressure currently controlled. Continue current blood pressure regimen. 5. Acute hemorrhagic cerebrovascular accident with right-sided weakness. The patient's CT scan was reviewed. Continue neuro checks. Follow up with Neurology. Consider Neurosurgery evaluation. Hold all anticoagulation. 6. Dyslipidemia. 7. Benign prostatic hypertrophy. Continue Flomax. 8. Atrial fibrillation, currently rate controlled. Resume amiodarone. 9. Hypothyroidism. Continue Synthroid. Thank you, Dr. Dillard, for this interesting consult. It will be a pleasure to follow patient with you throughout the hospital course. Dictated By: Lee Pagan DO /rodríguez/filipe /Document#: [id number]
--- NOTE | 2017-03-26 16:38 | PN ---
Date/Time of Note Date/Time of Note DATE: 03/26/17 TIME: 16:35 Assessment/Plan VTE Prophylaxis VTE Prophylaxis Intervention: contraindicated Lines/Catheters IV [facility]ine Lock Urinary Cath still in place: No Assessment/Plan Chief Complaint/Hosp Course 89 yo male with h/o paroxysmal A FIb off of AC 2/2 previous ICH, hypertension who presented wt acute thalamic ICH causing RUE hand weakness ICH: - Stable symptoms - MRA/MRI per neurology - BP is controlled - Avoid AC and antiplatelets Hypertension: - Controlled, contiue nifedipine A FIb: - Continue amiodarone - AC contraindicated BPH: - Continue flomax SCDs for ppx Problems: Subjective 24 Hr Interval Summary Free Text/Dictation NCHCT stable Today with continued weakness in his R hand, no other complaints Exam/Review of Systems Vital Signs Vitals Vital Signs Date Time Temp Pulse Resp B/P Pulse Ox O2 Delivery O2 Flow Rate FiO2 03/26/17 16:14 62 03/26/17 11:21 98.2 20 143/70 99 03/26/17 08:18 Nasal Cannula 2.0 Intake and Output 03/25/17 03/25/17 03/26/17 15:00 23:00 07:00 Intake Total 50 ml Output Total 1000 ml Balance -950 ml Exam Alert, oriented x3, pleasant RRR, no m/r/g Clear lungs CN II-XII in tact. R hand with weakness to wrist. 5/5 in shoulder. Further neurologic exam is nonfocal Results Result Diagram: 03/25/17 0138 03/25/17 013 Medications Medications Current Medications Ondansetron HCl (Zofran Inj) 4 mg Q6H PRN IV NAUSEA AND/OR VOMITING; Start 03/25 at 03:00 Acetaminophen (Tylenol Liquid) 650 mg Q6H PRN PO PAIN LEVEL 1-3 OR FEVER; Start 03/25/17 at 03:00 Docusate Sodium (Colace) 100 mg Q12H PRN PO CONSTIPATION; Start 03/25/17 at 03: 00 Bisacodyl (Dulcolax) 5 mg DAILY PRN PO CONSTIPATION; Start 03/25/17 at 03:00 Pantoprazole (Protonix Iv) 40 mg DAILY@06 IV Last administered on 03/26/17t 05: 47; Admin Dose 40 MG; Start 03/25/17 at 06:00 Acetaminophen (Tylenol Tab) 650 mg Q4H PRN PO TEMP GREATER THAN 99.6F; Start at 03:00 Docusate Sodium (Colace) 100 mg BID PO Last administered on 03/26/17 09:33; Admin Dose 100 MG; Start 03/25/17 at 09:00 Nifedipine (Procardia) 10 mg Q6 PO Last administered on 03/26/17 12:49; Admin Dose 10 MG; Start 03/25/17 at 17:00 Lorazepam (Ativan) 2 mg Q4 PRN IV AGITATION/ANXIETY; Start 03/25/17 at 21:00 BUSHRA GRAHAM MD Mar 26, 2017 16:38
--- NOTE | 2017-03-26 16:44 | RADRPT ---
PROCEDURE: Retroperitoneal ultrasound. CLINICAL INDICATION: Acute renal failure TECHNIQUE: Bocanegra scale and color doppler ultrasound images of the retroperitoneum, kidneys, urinary bladder COMPARISON: No prior studies are available for comparison. FINDINGS: Kidneys: Right length (cm) : 9.4 Left length (cm) : 7.1 Right cortical thickness: Moderate - severe thinning measuring 6 mm Left cortical thickness: Moderate - severe thinning measuring 6 - 7 mm Echogenicity: Increased bilaterally Hydronephrosis: None. Renal calculi: Nonobstructive calculi are present measuring up to 7 mm within the right kidney. Focal lesions: A 5.1 cm cystic lesion along the medial margin of the left kidney. Free fluid/ascites: None. Abdominal aorta: Normal caliber of the visualized segments. Bladder: No focal lesions. Other findings: Partially visualized prostate appears enlarged measuring at least 4.5 x 4.6 x 4.1 cm . IMPRESSION: Atrophic changes of both kidneys with increased echogenicity compatible with chronic medical renal d isease. No hydronephrosis. 5.1 cm cysts along the medial margin of the left kidney of uncertain etiology, possibly a suboptimal ly visualized parapelvic cysts. RPTAT: AADD .Jason Garcia MD, MD Date Time Electronically viewed and signed by .Jason Garcia MD, on 03/26/2017 16:43 .B/
[2017-03-26] MEDS ORDERED: hydrALAzine 20 MG INJ IV PRN (18:30)
--- NOTE | 2017-03-26 18:59 | RADRPT ---
AMENDMENT: 03/26/2017 7:00:46 PM Jessica Byrd M.D. Recommend follow-up brain MRI with contrast when clinically feasible to exclude underlying lesion. PROCEDURE: MRI Brain without contrast. CLINICAL INDICATION: Intracranial hemorrhage. TECHNIQUE: An MRI of the brain was performed utilizing the following sequences: Sagittal and axial T1 weighted, axial T2 weighted, axial diffusion weighted with ADC mapping, coronal GRE, and axial F LAIR. COMPARISON: Brain CT 03/25/2017. FINDINGS: Mildly heterogeneous hematoma is again noted involving the posterior left superior frontal gyrus and measures approximately 1.8 x 1.3 x 1.3 cm (oblique AP x oblique transverse x craniocaudal) with ass ociated gradient susceptibility effect. There is mild surrounding vasogenic edema. There is also 2.2 cm gradient susceptibility artifact in the posterolateral aspect of the left thala mus/posterior limb of the internal capsule which likely represent hemosiderin. Smaller punctate foci are also noted in right temporal and left frontal lobes. No diffusion weighted abnormalities are seen to suggest the presence of acute ischemia or recent inf arct. There is no evidence of midline shift. No extra-axial fluid collections are seen. The ventric les and sulci are mildly to moderately enlarged indicative of volume loss. There are moderate patchy and scattered foci of T2 FLAIR hyperintensity in the periventricular, deep , and subcortical white matter, which are nonspecific in etiology but likely reflect chronic small v essel ischemic changes. No abnormal intracranial vascular flow void is noted. The visualized paranasal sinuses demonstrate m ild scattered mucosal thickening mainly in ethmoid air cells and maxillary sinuses. IMPRESSION: 1. Acute/subacute 1.8 cm hematoma in the posterior left superior frontal gyrus with mild surroundin g vasogenic edema. 2. Probable hemosiderin in the posterolateral aspect of the left thalamus/posterior limb of the int ernal capsule. Smaller punctate foci are also noted in right temporal and left frontal lobes. 3. Moderate chronic small vessel ischemic changes. 4. Mild to moderate generalized cerebral and mild cerebellar volume loss. RPTAT: HFN .Jessica Byrd MD, MD Date Time Electronically viewed and signed by .Jessica Byrd MD, MD on 03/26/2017 19:02 .N/
--- NOTE | 2017-03-26 19:07 | RADRPT ---
PROCEDURE: MRA Brain. CLINICAL INDICATION: Intracranial hemorrhage. TECHNIQUE: An MRA of the brain was performed without intravenous contrast utilizing the following sequences: 3-D [id number] images through the intracranial vasculature with post processed kamarn l intensity projections in multiple planes. COMPARISON: Concurrent MRI of the brain. FINDINGS: Mild to moderate narrowing of the cavernous and supraclinoid segments of the internal carotid arteri es. The petrous internal carotid artery segments are patent without evidence of significant stenosis . The proximal anterior cerebral and middle cerebral arteries are patent without significant stenosi s. The intradural vertebral arteries, basilar artery and posterior cerebral arteries are patent wit hout evidence of significant focal stenosis. No aneurysms are identified. No evidence of vascular ma lformation is noted in the partially visualized left frontal lobe hematoma. IMPRESSION: 1. No MRA evidence of vascular malformation is noted in the partially visualized left frontal lobe hematoma. Recommend follow-up MRA or CTA after resolution of hematoma to evaluate for possible under lying vascular malformation. 2. Mild to moderate narrowing of the cavernous and supraclinoid segments of the internal carotid ar teries. 3. Otherwise no significant stenosis in the remainder of major intracranial arteries. RPTAT: HFN .Jessica Byrd MD, Date Time Electronically viewed and signed by .Jessica Byrd MD, on 03/26/2017 19:06 .N/
--- NOTE | 2017-03-26 19:47 | CONS ---
Date/Time of Note Date/Time of Note DATE: 03/26/17 TIME: 13:00 Assessment/Plan Assessment/Plan Additional Assessment/Plan Date of consultation: March 26, 2017 Consulting service: Neurosurgery This is a 89-year-old right-handed male with past medical history significant for hypertension, atrial fibrillation and prior history of a left sided hemorrhagic stroke who has now presented with acute right hand weakness without numbness. The patient was found to have a new acute left frontal lobar hemorrhage and neurosurgery was consulted. The patient denies loss of consciousness. He denies convulsions or seizures. The patient was apparently taking anticoagulation for his history of atrial fibrillation but once he developed the initial hemorrhagic stroke, the anticoagulation was discontinued. The patient was also taking blood pressure medications up until recently where he developed "low blood pressure"at the advice of his primary care physician, the blood pressure medications were discontinued. The patient tells me that he checked his blood pressure just before coming into the hospital where his blood pressure was in the 140s are 150s. As a result of the patient' s prior stroke he developed left-sided visual field loss. According to the emergency room physician, the patient's initial blood pressure at the time of arrival was elevated. Past medical history: Hypertension, atrial fibrillation, hypothyroidism, BPH, hyperlipidemia Surgical history: Lumbar surgery? Allergies: No known drug allergies Family history: Noncontributory Social history: The patient says he lives by himself. He denies use of tobacco , alcohol or illicit or recreational drugs. Imaging: She has received 3 head CTs without contrast yesterday that show stable small left frontal lobar hemorrhage that appears to be in the premotor cortex controlling the right hand. There is no significant mass effect. There is no midline shift. There is some brain atrophy. There is no evidence of hydrocephalus. Basal cisterns are open. There is no sulcal effacement. Physical exam: This is a very pleasant elderly gentleman who is awake, alert and oriented 4. His language is grossly intact. His face is symmetric. His tongue is midline. Ocular movements are intact. Motor strength in left upper and bilateral lower extremities is 5 minus out of 5 proximally and distally. Motor strength in the right upper extremity is 4+ out of 5 proximally. 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 Sensation to light touch is grossly intact bilateral upper and lower extremities. Deep tendon reflexes are 1+ bilateral upper and lower activities. Gait testing has been deferred per patient request. Assessment/plan: The patient's small stable left frontal lobar hemorrhage in the premotor cortex is most likely related to amyloid angiopathy versus hypertension. Other etiology such as vascular malformations such as a cavernous malformation or an AVM is muscular is likely. Unfortunately this is the patient's second hemorrhagic stroke with the first hemorrhagic stroke having been thought to be related to anticoagulation the patient was taking for atrial fibrillation. This time, the patient has been off of anticoagulation and stopped taking his blood pressure medications recently because of reported low blood pressure. The focal lobar hemorrhage in the premotor cortex corresponding to the hand area on the homunculus most likely explains why it's only the patient's right hand that experiences weakness and not the rest of his right upper extremity. Given the fact that the patient has already had 2 hemorrhagic strokes, use of anticoagulation for his atrial fibrillation most likely carries more risk than benefit. The patient also needs to be further evaluated and a blood pressure log should be kept, at aspect to be done on an outpatient basis to determine whether the patient's blood pressure is really elevator are not on a chronic basis and if it is the patient should definitely be treated with blood pressure medications. There is no acute neurosurgical intervention indicated. The patient would however benefit from aggressive physical therapy and occupational therapy to allow him to regain his dominant hand, right hand function back over time. JACK KAMARA MD Mar 26, 2017 19:47
[2017-03-26] MEDS ORDERED: traZODone 50 MG TAB PO ONE (21:30)
[2017-03-26] MEDS: ZOLPIDEM 5 MG TAB PO PRN (21:41)
[2017-03-26] MEDS: TAMSULOSIN (SR) 0.4 MG CAP PO SCH (21:42)
[2017-03-26] MEDS: NIFEdipine (XL) 60 MG TAB PO SCH (21:42)
[2017-03-27] VITALS (12 sets, daily range): BP systolic 91–140; BP diastolic 53–68; PULSE 62–65; RESP 15–20
[2017-03-27] MEDS: BISACODYL (EC) 5 MG TAB PO PRN (05:32)
[2017-03-27] MEDS: LEVOTHYROXINE 100 MCG TAB PO SCH (06:08)
[2017-03-27] MEDS: PANTOPRAZOLE 40 MG INJ IV SCH (06:08)
[2017-03-27] MEDS: NIFEdipine (XL) 60 MG TAB PO SCH (09:00)
[2017-03-27] MEDS: AMIODARONE 200 MG TAB PO SCH (09:00)
[2017-03-27] MEDS: DOCUSATE SODIUM 100 MG CAP PO SCH ×2 (09:18→21:25)
--- NOTE | 2017-03-27 10:25 | PN ---
DATE: 03/27/2017 SUBJECTIVE DATA: The patient continues to have limited use of his right hand. The patient despondent. No other events noted. OBJECTIVE DATA: VITAL SIGNS: Blood pressure 90/53, respirations 20, pulse 69, and temperature 98.5. HEENT: Head is normocephalic. NECK: Supple. HEART: Regular rate. LUNGS: Diminished breath sounds at the base. ABDOMEN: Soft, nontender to palpation. No rebound or guarding. EXTREMITIES: Negative for clubbing, cyanosis. No edema. DERMATOLOGIC: Clean. No rashes. MUSCULOSKELETAL: No joint effusion. NEUROLOGIC: No change in exam. MEDICATIONS: The patient's medications have been reviewed. LABORATORY AND DIAGNOSTIC DATA: Laboratory data is pending. Renal ultrasound shows atrophic changes both kidneys compatible chronic kidney disease. The patient's repeat blood work pending. ASSESSMENT AND PLAN: 1. Chronic kidney disease. Possible underlying acute kidney injury (PONCE). Etiology may be secondary to hemodynamics. The patient's renal ultrasound shows evidence of atrophic kidney disease consistent with chronic kidney disease. The patient has a baseline creatinine around 1.5 to 2.0 mg per primary care physician. At this point, would continue current treatment plan. Monitor blood pressure closely. Avoiding any significant hemodynamics shows. We will follow up renal ekg monitor tech closely. 2. Anemia. Monitor hemoglobin and hematocrit levels. 3. Mineral bone disorder. Monitor calcium and phosphorus levels. 4. Hypertension. The patient is currently hypotensive. Would adjust blood pressure medications. Avoid significant hypotension to enable adequate renal perfusion. 5. Acute the hemorrhagic cerebrovascular accident (CVA) with right-sided weakness. The patient is seen by Neurosurgery. No plans for intervention at this time. 6. Dyslipidemia. 7. Benign prostatic hypertrophy. Continue Flomax. 8. Atrial fibrillation rate controlled. Continue amiodarone. 9. Hypothyroidism. Continue Synthroid. Dictated By: Lee Pagan DO /rodríguez/alexa /Document#: [id number]
[2017-03-27 13:43] LABS: CALCIUM 9.4 mg/dl (8.4-10.2); CREATININE 1.95 mg/dl (0.61-1.24); POTASSIUM 4.6 mmol/L (3.5-5.1)
--- NOTE | 2017-03-27 16:16 | CONS ---
Date/Time of Note Date/Time of Note DATE: 03/27/17 TIME: 16:14 Consult Date/Type/Reason Admit Date/Time Mar 25, 2017 at 10:53 Initial Consult Date 03/25/17 Type of Consultation: Neurology Reason for Consultation ICH Ordering Provider: BUSHRA GRAHAM MD Subjective remains stable right hand weakness persistent evaluated by PT may benefit from rehab Objective Vital Signs Date Time Temp Pulse Resp B/P Pulse Ox O2 Delivery O2 Flow Rate FiO2 03/27/17 16:04 62 03/27/17 12:22 98.1 20 108/58 98 03/27/17 09:10 Nasal Cannula 2.0 Intake and Output 03/26/17 03/26/17 03/27/17 15:00 23:00 07:00 Intake Total 1500 ml 400 ml Output Total 800 ml 300 ml Balance 700 ml 100 ml Exam awake and alert oriented x3 follows all commands no aphasia CN: JESSICA, blinks to threat appropriately no facial asymmetry mild dysarthria Motor: right hand 0/5 proximal strength in biceps and triceps is full 5/5 otherwise strength in RLE and LUE and LLE 5/5 Coordination: unable to perform on right due to weakness Sensory is intact throughout Results/Medications Result Diagram: 03/25/17 0138 03/27/17 1241 Results 24 hrs Laboratory Tests Test 03/27/17 12:41 Sodium Level 132 L Potassium Level 4.6 Chloride Level 101 Carbon Dioxide Level 22 Anion Gap 14 Blood Urea Nitrogen 34 H Creatinine 1.95 H Glucose Level 137 Calcium Level 9.4 Medications Current Medications Ondansetron HCl (Zofran Inj) 4 mg Q6H PRN IV NAUSEA AND/OR VOMITING; Start 03/25 at 03:00 Acetaminophen (Tylenol Liquid) 650 mg Q6H PRN PO PAIN LEVEL 1-3 OR FEVER Last administered on 03/27/17 05:32; Admin Dose 650 MG; Start 03/25/17 at 03:00 Docusate Sodium (Colace) 100 mg Q12H PRN PO CONSTIPATION; Start 03/25/17 at 03: 00 Bisacodyl (Dulcolax) 5 mg DAILY PRN PO CONSTIPATION Last administered on 05:32; Admin Dose 5 MG; Start 03/25/17 at 03:00 Pantoprazole (Protonix Iv) 40 mg DAILY@06 IV Last administered on 03/27/17 06: 08; Admin Dose 40 MG; Start 03/25/17 at 06:00 Acetaminophen (Tylenol Tab) 650 mg Q4H PRN PO TEMP GREATER THAN 99.6F; Start at 03:00 Docusate Sodium (Colace) 100 mg BID PO Last administered on 03/27/17 09:18; Admin Dose 100 MG; Start 03/25/17 at 09:00 Lorazepam (Ativan) 2 mg Q4 PRN IV AGITATION/ANXIETY; Start 03/25/17 at 21:00 Amiodarone HCl (Cordarone) 200 mg DAILY PO ; Start 03/27/17 at 09:00 Tamsulosin HCl (Flomax) 0.4 mg HS PO Last administered on 03/26/17 21:42; Admin Dose 0.4 MG; Start 03/26/17 at 21:00 Zolpidem Tartrate (Ambien) 5 mg HS PRN PO INSOMNIA Last administered on 21:41; Admin Dose 5 MG; Start 03/26/17 at 21:30 Nifedipine (Procardia Xl) 30 mg DAILY PO ; Start 03/27/17 at 18:30 Assessment/Plan Chief Complaint/Hosp Course 89 year old male with history of afib prior hemorrhagic CVA in setting of AC now off anticoagulation and antiplatelet agents p/w right hand weakness in setting of left frontal convexity ICH. MRI Brain 1. Acute/subacute 1.8 cm hematoma in the posterior left superior frontal gyrus with mild surrounding vasogenic edema. 2. Probable hemosiderin in the posterolateral aspect of the left thalamus/ posterior limb of the internal capsule. Smaller punctate foci are also noted in right temporal and left frontal lobes.3. Moderate chronic small vessel ischemic changes.4. Mild to moderate generalized cerebral and mild cerebellar volume loss. Recommendations: intermediate card tender goal SBP <140/90 avoid antiplatelets and AC would also avoid NSAIDS in the future MRA without no underlying vascular abnormality, would recommend repeat MRI Brain +/- contrast 1-2 months to rule out underlying lesion he may follow up with Dr. Ivory as outpatient, will sign off plan for Acute Rehab Problems: STEPHAN PALOMINO MD Mar 27, 2017 16:16
--- NOTE | 2017-03-27 16:37 | PN ---
Date/Time of Note Date/Time of Note DATE: 03/27/17 TIME: 16:35 Assessment/Plan VTE Prophylaxis VTE Prophylaxis Intervention: contraindicated Lines/Catheters IV [facility]from [facility] Saline Lock Urinary Cath still in place: No Assessment/Plan Chief Complaint/Hosp Course 89 yo male with h/o paroxysmal A FIb off of AC 2/2 previous ICH, hypertension who presented wtih acute thalamic ICH causing RUE hand weakness ICH: - Stable symptoms - MRA shows no concerning vascular lesion - BP seems controlled off of therapies, hypotensive with nifedipine so will only give BP meds if hypertensive - Avoid AC and antiplatelets A FIb: - Continue amiodarone - AC contraindicated given recurrent bleeds in head BPH: - Continue flomax SCDs for ppx Stable for discharge to inpatient rehab whenever can be arranged Problems: Subjective 24 Hr Interval Summary Free Text/Dictation Was hypotensive today after given nifedipnie, BP meds now held Feels frustrated by this. Wants to be able to walk around No new neurologic syptoms Stable weakness in his right hand Exam/Review of Systems Vital Signs Vitals Vital Signs Date Time Temp Pulse Resp B/P Pulse Ox O2 Delivery O2 Flow Rate FiO2 03/27/17 16:15 98.2 62 20 128/65 96 03/27/17 09:10 Nasal Cannula 2.0 Intake and Output 03/26/17 03/26/17 03/27/17 15:00 23:00 07:00 Intake Total 1500 ml 400 ml Output Total 800 ml 300 ml Balance 700 ml 100 ml Exam Comfortable, pleasnat, AOx3 R hadn with 0/5 strenght. Normal strenght in elbow and shoulder. Neuro exam is nonfocal otehrwise RRR Lugns clear No edema Results Result Diagram: 03/25/17 0138 03/27/17 1241 Results 24 hrs Laboratory Tests Test 03/27/17 12:41 Sodium Level 132 L Potassium Level 4.6 Chloride Level 101 Carbon Dioxide Level 22 Anion Gap 14 Blood Urea Nitrogen 34 H Creatinine 1.95 H Glucose Level 137 Calcium Level 9.4 Medications Medications Current Medications Ondansetron HCl (Zofran Inj) 4 mg Q6H PRN IV NAUSEA AND/OR VOMITING; Start 03/25 at 03:00 Acetaminophen (Tylenol Liquid) 650 mg Q6H PRN PO PAIN LEVEL 1-3 OR FEVER Last administered on 03/27/17 05:32; Admin Dose 650 MG; Start 03/25/17 at 03:00 Docusate Sodium (Colace) 100 mg Q12H PRN PO CONSTIPATION; Start 03/25/17 at 03: 00 Bisacodyl (Dulcolax) 5 mg DAILY PRN PO CONSTIPATION Last administered on 05:32; Admin Dose 5 MG; Start 03/25/17 at 03:00 Pantoprazole (Protonix Iv) 40 mg DAILY@06 IV Last administered on 03/27/17 06: 08; Admin Dose 40 MG; Start 03/25/17 at 06:00 Acetaminophen (Tylenol Tab) 650 mg Q4H PRN PO TEMP GREATER THAN 99.6F; Start at 03:00 Docusate Sodium (Colace) 100 mg BID PO Last administered on 03/27/17 09:18; Admin Dose 100 MG; Start 03/25/17 at 09:00 Lorazepam (Ativan) 2 mg Q4 PRN IV AGITATION/ANXIETY; Start 03/25/17 at 21:00 Amiodarone HCl (Cordarone) 200 mg DAILY PO ; Start 03/27/17 at 09:00 Tamsulosin HCl (Flomax) 0.4 mg HS PO Last administered on 03/26/17 21:42; Admin Dose 0.4 MG; Start 03/26/17 at 21:00 Zolpidem Tartrate (Ambien) 5 mg HS PRN PO INSOMNIA Last administered on 21:41; Admin Dose 5 MG; Start 03/26/17 at 21:30 BUSHRA GRAHAM MD Mar 27, 2017 16:37
[2017-03-27] MEDS ORDERED: NIFEdipine (XL) 30 MG TAB PO SCH (18:30)
[2017-03-27] MEDS: TAMSULOSIN (SR) 0.4 MG CAP PO SCH (21:25)
[2017-03-27] MEDS: ZOLPIDEM 5 MG TAB PO PRN (21:25)
[2017-03-28] VITALS (9 sets, daily range): BP systolic 129–162; BP diastolic 66–76; PULSE 58–92; RESP 18–20
[2017-03-28] MEDS: BISACODYL (EC) 5 MG TAB PO PRN (05:58)
[2017-03-28] MEDS: LEVOTHYROXINE 100 MCG TAB PO SCH (05:58)
[2017-03-28] MEDS: PANTOPRAZOLE 40 MG INJ IV SCH (05:58)
[2017-03-28 07:50] LABS: BASOPHILS % 0.1 % (0.0-2.0); EOSINOPHILS % 0.2 % (0.0-7.0); HEMATOCRIT 38.8 % (42.0-52.0); LYMPHOCYTES # 0.6 10^3/ul (0.8-2.9); LYMPHOCYTES % 5.7 % (15.0-51.0); MEAN CORPUSCULAR HEMOGLOBIN 32.4 pg (29.0-33.0); MEAN CORPUSCULAR HGB CONC 33.5 g/dl (32.0-37.0); MEAN CORPUSCULAR VOLUME 96.8 fl (82.0-101.0); MEAN PLATELET VOLUME 10.9 fl (7.4-10.4); MONOCYTE # 1.2 10^3/ul (0.3-0.9); MONOCYTES % 10.5 % (0.0-11.0); PLATELET COUNT 196 10^3/UL (140-415); RED BLOOD COUNT 4.01 10^6/ul (4.70-6.10); RED CELL DISTRIBUTION WIDTH 12.8 % (11.5-14.5); WHITE BLOOD COUNT 11.2 10^3/ul (4.8-10.8)
[2017-03-28 08:23] LABS: CALCIUM 8.9 mg/dl (8.4-10.2); CREATININE 1.58 mg/dl (0.61-1.24); PHOSPHORUS 3.9 mg/dl (2.5-4.9); POTASSIUM 4.2 mmol/L (3.5-5.1)
[2017-03-28] MEDS: AMIODARONE 200 MG TAB PO SCH (09:33)
[2017-03-28] MEDS: DOCUSATE SODIUM 100 MG CAP PO SCH ×2 (09:33→21:34)
--- NOTE | 2017-03-28 09:53 | PN ---
Date/Time of Note Date/Time of Note DATE: 03/28/17 TIME: 09:43 Assessment/Plan VTE Prophylaxis VTE Prophylaxis Intervention: SCD's Lines/Catheters IV [facility]from [facility] Saline [facility] Urinary Cath still in place: No Assessment/Plan Assessment/Plan 1. Acute left frontal hemorrhage with right hand weakness, continue PT/OT 2. A FIb, Continue amiodarone, controlled rate, no anticoagulation 3. Hypertension, add norvasc 4. Hypothyroidism, on supplement 5. BPH: Continue flomax 6. DVT prophylaxis: SCD's Subjective 24 Hr Interval Summary Free Text/Dictation feels dizzy on titting positing, will get orthostatic check Exam/Review of Systems Vital Signs Vitals Vital Signs Date Time Temp Pulse Resp B/P Pulse Ox O2 Delivery O2 Flow Rate FiO2 03/28/17 08:18 98.2 62 20 142/69 96 03/28/17 07:42 2.0 03/27/17 21:00 Nasal Cannula Intake and Output 03/27/17 03/27/17 03/28/17 15:00 23:00 07:00 Intake Total 850 ml 500 ml Output Total 900 ml 360 ml Balance -50 ml 140 ml Exam Constitutional: alert, oriented, well developed Psych: nl mood/affect, no complaints Head: atraumatic, normocephalic Eyes: EOMI, PERRL, nl conjunctiva, nl lids ENMT: mucosa pink and moist, nl external ears & nose, nl lips & teeth, nl nasal mucosa & septum Neck: non-tender, supple Respiratory: clear to auscultation, normal air movement, No congested cough, No crackles/rales, No diminished breath sounds, No intercostal retraction, No labored breathing, No other, No respirations, No tactile fremitus, No wheezing Cardiovascular: nl pulses, regular rate and rhythm, No S3, No S4, No bruits, No diastolic murmur, No edema, No gallop, No irregular rhythm, No jugular venous distention (JVD), No murmurs/extra sounds, No other, No rub, No systolic murmur Gastrointestinal: nl liver, spleen, non-tender, soft, No ascites, No bowel sounds, No distended, No firm, No hepatomegaly, No mass , No other, No rebound or guarding, No splenomegaly, No surgical scars, No tender Musculoskeletal: nl extremities to inspection Extremities: normal pulses, No calf tenderness, No clubbing, No cyanosis, No edema, No other, No palpable cord, No pitting pedal edema, No tenderness 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, nl mental status, nl speech, other (right hand 0/5) Skin: nl turgor Lymph: nl lymph nodes Results Result Diagram: 03/28/17 0631 03/28/17 0631 Results 24 hrs Laboratory Tests Test 03/27/17 12:41 03/28/17 06:31 Sodium Level 132 L 133 L Potassium Level 4.6 4.2 Chloride Level 101 102 Carbon Dioxide Level 22 24 Anion Gap 14 11 Blood Urea Nitrogen 34 H 37 H Creatinine 1.95 H 1.58 H Glucose Level 137 116 Calcium Level 9.4 8.9 White Blood Count 11.2 #H Red Blood Count 4.01 L Hemoglobin 13.0 L Hematocrit 38.8 L Mean Corpuscular Volume 96.8 Mean Corpuscular Hemoglobin 32.4 Mean Corpuscular Hemoglobin Concent 33.5 Red Cell Distribution Width 12.8 Platelet Count 196 Mean Platelet Volume 10.9 H Neutrophils % 83.0 H Lymphocytes % 5.7 L Monocytes % 10.5 Eosinophils % 0.2 Basophils % 0.1 Nucleated Red Blood Cells % 0.0 Neutrophils # (Manual) 9.3 H Lymphocytes # 0.6 L Monocytes # 1.2 H Eosinophils # 0.0 Basophils # 0.0 Nucleated Red Blood Cells # 0.0 Phosphorus Level 3.9 Magnesium Level 2.0 Medications Medications Current Medications Ondansetron HCl (Zofran Inj) 4 mg Q6H PRN IV NAUSEA AND/OR VOMITING; Start 03/25 at 03:00 Acetaminophen (Tylenol Liquid) 650 mg Q6H PRN PO PAIN LEVEL 1-3 OR FEVER Last administered on 03/27/17 05:32; Admin Dose 650 MG; Start 03/25/17 at 03:00 Docusate Sodium (Colace) 100 mg Q12H PRN PO CONSTIPATION; Start 03/25/17 at 03: 00 Bisacodyl (Dulcolax) 5 mg DAILY PRN PO CONSTIPATION Last administered on 05:58; Admin Dose 5 MG; Start 03/25/17 at 03:00 Pantoprazole (Protonix Iv) 40 mg DAILY@06 IV Last administered on 03/28/17 05: 58; Admin Dose 40 MG; Start 03/25/17 at 06:00 Acetaminophen (Tylenol Tab) 650 mg Q4H PRN PO TEMP GREATER THAN 99.6F; Start at 03:00 Docusate Sodium (Colace) 100 mg BID PO Last administered on 03/28/17 09:33; Admin Dose 100 MG; Start 03/25/17 at 09:00 Lorazepam (Ativan) 2 mg Q4 PRN IV AGITATION/ANXIETY; Start 03/25/17 at 21:00 Amiodarone HCl (Cordarone) 200 mg DAILY PO Last administered on 03/28/17 09:33 ; Admin Dose 200 MG; Start 03/27/17 at 09:00 Tamsulosin HCl (Flomax) 0.4 mg HS PO Last administered on 03/27/17 21:25; Admin Dose 0.4 MG; Start 03/26/17 at 21:00 Zolpidem Tartrate (Ambien) 5 mg HS PRN PO INSOMNIA Last administered on 21:25; Admin Dose 5 MG; Start 03/26/17 at 21:30 KYLAH SUTHERLAND MD Mar 28, 2017 09:53
[2017-03-28] MEDS ORDERED: AMLODIPINE 2.5 MG TAB PO SCH (10:00)
--- NOTE | 2017-03-28 18:53 | PN ---
DATE: 03/28/2017 SUBJECTIVE DATA: Patient stable. No events overnight. No fevers, chills, nausea, vomiting. No shortness of breath. OBJECTIVE DATA: VITAL SIGNS: Blood pressure is 142/69, respirations 20, pulse 62, temperature 98.2. HEENT: Head is normocephalic. NECK: Supple. HEART: Regular rate. LUNGS: Diminished breath sounds at the base. ABDOMEN: Soft, nontender to palpation. No rebound, guarding. EXTREMITIES: Negative for clubbing, cyanosis. No edema. DERMATOLOGIC: No rashes. MUSCULOSKELETAL: No joint effusion. NEUROLOGIC: No change in exam. MEDICATIONS: Reviewed. LABORATORY AND DIAGNOSTIC DATA: Sodium 133, potassium 4.2, chloride 102, BUN 37, creatinine 1.58. White count 11.2, hemoglobin 13.0, hematocrit 38.3, and platelet count is 196,000. ASSESSMENT AND PLAN: 1. Nonoliguric acute kidney injury on top of chronic kidney disease, etiology of acute kidney injury secondary to hemodynamics. Patient's renal function is slowly improving, returning back to previous baseline. At this point, continue current treatment plan and supportive care, and renally dose all medications. 2. Anemia. Monitor hemoglobin and hematocrit levels. 3. Mineral bone disorder. Monitor calcium and phosphorus levels. 4. Hypertension. Continue current blood pressure regimen. 5. Acute hemorrhagic cerebrovascular accident with right hand weakness. Patient has been seen by Neurosurgery. No plan for intervention. Continue current supportive care. 6. Benign prostatic hypertrophy. Continue Flomax. 7. Atrial fibrillation, rate controlled. Continue amiodarone. 8. Hypothyroidism. Continue Synthroid. 9. Dyslipidemia. Continue statin therapy. 10. Mild hyponatremia. We will continue to monitor. Limit free water intake. Dictated By: Lee Pagan DO /rodríguez/jamar /Document#: [id number]
[2017-03-28] MEDS: TAMSULOSIN (SR) 0.4 MG CAP PO SCH (21:34)
[2017-03-29] VITALS (13 sets, daily range): BP systolic 111–155; BP diastolic 60–77; PULSE 50–66; RESP 18–19
[2017-03-29] MEDS: PANTOPRAZOLE (EC) 40 MG TAB PO SCH (05:23)
[2017-03-29] MEDS: LEVOTHYROXINE 100 MCG TAB PO SCH (05:24)
[2017-03-29 07:23] LABS: CALCIUM 8.9 mg/dl (8.4-10.2); CREATININE 1.49 mg/dl (0.61-1.24); MAGNESIUM 2.1 mg/dl (1.7-2.5); PHOSPHORUS 3.4 mg/dl (2.5-4.9); POTASSIUM 4.4 mmol/L (3.5-5.1)
[2017-03-29] MEDS: DOCUSATE SODIUM 100 MG CAP PO SCH ×2 (08:46→21:56)
[2017-03-29] MEDS: AMIODARONE 200 MG TAB PO SCH (08:46)
--- NOTE | 2017-03-29 11:02 | PN ---
Date/Time of Note Date/Time of Note DATE: 03/29/17 TIME: 10:50 Assessment/Plan VTE Prophylaxis VTE Prophylaxis Intervention: SCD's Lines/Catheters IV [facility]from [facility] Saline Lock Urinary Cath still in place: No Assessment/Plan Assessment/Plan 1. Transient loss of consciousness, likely syncope, r/o seizure, EEG, cardiology consult 2. Acute left frontal hemorrhage with right hand weakness, continue PT/OT 3. Paroxysmal A FIb, sinus now, Continue amiodarone, no anticoagulation 3. Hypertension, add norvasc 4. Hypothyroidism, on supplement 5. BPH: Continue flomax 6. DVT prophylaxis: SCD's Subjective 24 Hr Interval Summary Free Text/Dictation Patient had an episode of passing out with loss of consciousness for seconds: patient was sitting in the chair then eyes looked backward, whole body shake several times but no jerking movement on limbs. ECG showed a long pause with atrial fibrillation. He woke up and cannot recall what happened adn ECG is back to sinus rhythm. Exam/Review of Systems Vital Signs Vitals Vital Signs Date Time Temp Pulse Resp B/P Pulse Ox O2 Delivery O2 Flow Rate FiO2 03/29/17 10:47 50 03/29/17 08:22 Nasal Cannula 2.0 03/29/17 08:19 98.1 19 138/72 98 Intake and Output 03/28/17 03/28/17 03/29/17 15:00 23:00 07:00 Intake Total 550 ml 400 ml Output Total 550 ml 300 ml Balance 0 ml 100 ml Exam Constitutional: alert, oriented, well developed Psych: nl mood/affect, no complaints Head: atraumatic, normocephalic Eyes: EOMI, PERRL, nl conjunctiva, nl lids, nl sclera ENMT: nl external ears & nose, nl lips & teeth, nl nasal mucosa & septum Neck: non-tender, supple Respiratory: clear to auscultation, normal air movement, No congested cough, No crackles/rales, No diminished breath sounds, No intercostal retraction, No labored breathing, No other, No respirations, No tactile fremitus, No wheezing Cardiovascular: nl pulses, regular rate and rhythm, No S3, No S4, No bruits, No diastolic murmur, No edema, No gallop, No irregular rhythm, No jugular venous distention (JVD), No murmurs/extra sounds, No other, No rub, No systolic murmur Gastrointestinal: nl liver, spleen, non-tender, soft, No ascites, No bowel sounds, No distended, No firm, No hepatomegaly, No mass , No other, No rebound or guarding, No splenomegaly, No surgical scars, No tender Musculoskeletal: nl extremities to inspection Extremities: normal pulses, No calf tenderness, No clubbing, No cyanosis, No edema, No other, No palpable cord, No pitting pedal edema, No tenderness 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, nl mental status, nl speech, other (right hand weakness) Skin: nl turgor Lymph: nl lymph nodes Results Result Diagram: 03/28/17 0631 03/29/17 0630 Results 24 hrs Laboratory Tests Test 03/29/17 06:30 Sodium Level 130 L Potassium Level 4.4 Chloride Level 101 Carbon Dioxide Level 26 Anion Gap 7 L Blood Urea Nitrogen 35 H Creatinine 1.49 H Glucose Level 136 Calcium Level 8.9 Phosphorus Level 3.4 Magnesium Level 2.1 Medications Medications Current Medications Ondansetron HCl (Zofran Inj) 4 mg Q6H PRN IV NAUSEA AND/OR VOMITING; Start 03/25 at 03:00 Acetaminophen (Tylenol Liquid) 650 mg Q6H PRN PO PAIN LEVEL 1-3 OR FEVER Last administered on 03/27/17 05:32; Admin Dose 650 MG; Start 03/25/17 at 03:00 Docusate Sodium (Colace) 100 mg Q12H PRN PO CONSTIPATION; Start 03/25/17 at 03: 00 Bisacodyl (Dulcolax) 5 mg DAILY PRN PO CONSTIPATION Last administered on 05:58; Admin Dose 5 MG; Start 03/25/17 at 03:00 Acetaminophen (Tylenol Tab) 650 mg Q4H PRN PO TEMP GREATER THAN 99.6F; Start at 03:00 Docusate Sodium (Colace) 100 mg BID PO Last administered on 03/29/17 08:46; Admin Dose 100 MG; Start 03/25/17 at 09:00 Lorazepam (Ativan) 2 mg Q4 PRN IV AGITATION/ANXIETY; Start 03/25/17 at 21:00 Amiodarone HCl (Cordarone) 200 mg DAILY PO Last administered on 03/29/17 08:46 ; Admin Dose 200 MG; Start 03/27/17 at 09:00 Tamsulosin HCl (Flomax) 0.4 mg HS PO Last administered on 03/28/17 21:34; Admin Dose 0.4 MG; Start 03/26/17 at 21:00 Zolpidem Tartrate (Ambien) 5 mg HS PRN PO INSOMNIA Last administered on 21:25; Admin Dose 5 MG; Start 03/26/17 at 21:30 Pantoprazole (Protonix Tab) 40 mg DAILY@06 PO Last administered on 03/29/17 05 :23; Admin Dose 40 MG; Start 03/29/17 at 06:00 KYLAH SUTHERLAND MD Mar 29, 2017 11:02
--- NOTE | 2017-03-29 11:22 | PN ---
DATE: 03/29/2017 SUBJECTIVE: The patient is stable. No events overnight. No fevers, chills, nausea, vomiting. No shortness of breath. OBJECTIVE DATA: VITAL SIGNS: Blood pressure 130/72, pulse 67, respirations 19. HEENT: Head is normocephalic. NECK: Supple. HEART: Regular rate. LUNGS: Diminished breath sounds at the base. ABDOMEN: Soft. Nontender to palpation. No rebound or guarding. EXTREMITIES: Negative for clubbing, cyanosis. No edema. DERMATOLOGIC: Clean. No rashes. MUSCULOSKELETAL: No joint effusion. NEUROLOGIC: No change in exam. MEDICATIONS: Reviewed. LABORATORY DATA: Show sodium of 130, BUN 35, creatinine 1.49. White count 11.2, hemoglobin 13.0, hematocrit 38.8, platelet count is 196,000. ASSESSMENT AND PLAN: 1. Nonoliguric acute kidney injury on top of chronic kidney disease, etiology secondary to hemodynamics. Renal function is slowly improving, returning back to baseline. Continue current treatment plan. Supportive care. Renally dose all meds. 2. Hyponatremia, in part due to underlying acute kidney injury causing decreased free water urinary excretion. Will limit free water intake, no more than 800 mL daily. 3. Anemia. Monitor hemoglobin and hematocrit levels. 4. Mineral bone disorder. Monitor calcium and phosphorus levels. 5. Hypertension. Continue current blood pressure regimen. 6. Acute hemorrhagic cerebrovascular accident with right-sided weakness. The patient has been seen by neurosurgeon. No plans for intervention. Continue current treatment plan. 7. Benign prostatic hypertrophy. Continue medical management. 8. Atrial fibrillation. Continue amiodarone. 9. Hypothyroid. Continue Synthroid. 10. Continue statin therapy. DISPOSITION: Patient is pending possible transfer to acute rehab. Dictated By: Lee Pagan DO /rodríguez/stan /Document#: [id number]
--- NOTE | 2017-03-29 12:01 | CONS ---
Date/Time of Note Date/Time of Note DATE: 03/29/17 TIME: 11:56 Consult Date/Type/Reason Admit Date/Time Mar 25, 2017 at 10:53 Initial Consult Date 03/25/17 Type of Consultation: Neurology Reason for Consultation possible syncope vs. seizure Ordering Provider: BUSHRA GRAHAM MD Subjective had an event this morning concerning for possible seizure vs. syncope at an event after PT, sitting in the chair noted patient was minimally responsive blankly staring mild shaking, stopped after 10 seconds no tongue biting no incontinence EKG showed long pause, VS remained stable Objective Vital Signs Date Time Temp Pulse Resp B/P Pulse Ox O2 Delivery O2 Flow Rate FiO2 03/29/17 10:47 50 03/29/17 08:22 Nasal Cannula 2.0 03/29/17 08:19 98.1 19 138/72 98 Intake and Output 03/28/17 03/28/17 03/29/17 15:00 23:00 07:00 Intake Total 550 ml 400 ml Output Total 550 ml 300 ml Balance 0 ml 100 ml Exam awake and alert oriented x3 follows all commands no aphasia CN: JESSICA, blinks to threat appropriately no facial asymmetry mild dysarthria Motor: right hand 0/5 proximal strength in biceps and triceps is full 5/5 otherwise strength in RLE and LUE and LLE 5/5 Coordination: unable to perform on right due to weakness Sensory is intact throughout Results/Medications Result Diagram: 03/28/17 0631 03/29/17 0630 Results 24 hrs Laboratory Tests Test 03/29/17 06:30 Sodium Level 130 L Potassium Level 4.4 Chloride Level 101 Carbon Dioxide Level 26 Anion Gap 7 L Blood Urea Nitrogen 35 H Creatinine 1.49 H Glucose Level 136 Calcium Level 8.9 Phosphorus Level 3.4 Magnesium Level 2.1 Medications Current Medications Ondansetron HCl (Zofran Inj) 4 mg Q6H PRN IV NAUSEA AND/OR VOMITING; Start 03/25 at 03:00 Acetaminophen (Tylenol Liquid) 650 mg Q6H PRN PO PAIN LEVEL 1-3 OR FEVER Last administered on 03/27/17t 05:32; Admin Dose 650 MG; Start 03/25/17 at 03:00 Docusate Sodium (Colace) 100 mg Q12H PRN PO CONSTIPATION; Start 03/25/17 at 03: 00 Bisacodyl (Dulcolax) 5 mg DAILY PRN PO CONSTIPATION Last administered on 05:58; Admin Dose 5 MG; Start 03/25/17 at 03:00 Acetaminophen (Tylenol Tab) 650 mg Q4H PRN PO TEMP GREATER THAN 99.6F; Start at 03:00 Docusate Sodium (Colace) 100 mg BID PO Last administered on 03/29/17 08:46; Admin Dose 100 MG; Start 03/25/17 at 09:00 Lorazepam (Ativan) 2 mg Q4 PRN IV AGITATION/ANXIETY; Start 03/25/17 at 21:00 Amiodarone HCl (Cordarone) 200 mg DAILY PO Last administered on 03/29/17 08:46 ; Admin Dose 200 MG; Start 03/27/17 at 09:00 Tamsulosin HCl (Flomax) 0.4 mg HS PO Last administered on 03/28/17 21:34; Admin Dose 0.4 MG; Start 03/26/17 at 21:00 Zolpidem Tartrate (Ambien) 5 mg HS PRN PO INSOMNIA Last administered on 21:25; Admin Dose 5 MG; Start 03/26/17 at 21:30 Pantoprazole (Protonix Tab) 40 mg DAILY@06 PO Last administered on 03/29/17 05 :23; Admin Dose 40 MG; Start 03/29/17 at 06:00 Assessment/Plan Chief Complaint/Hosp Course 89 year old male with history of afib prior hemorrhagic CVA in setting of AC now off anticoagulation and antiplatelet agents p/w right hand weakness in setting of left frontal convexity ICH. MRI Brain 1. Acute/subacute 1.8 cm hematoma in the posterior left superior frontal gyrus with mild surrounding vasogenic edema. 2. Probable hemosiderin in the posterolateral aspect of the left thalamus/ posterior limb of the internal capsule. Smaller punctate foci are also noted in right temporal and left frontal lobes.3. Moderate chronic small vessel ischemic changes.4. Mild to moderate generalized cerebral and mild cerebellar volume loss. Recommendations: Had episodes probably syncope, EEG also ordered to evaluate syncope work up check orthostatics detention goal SBP <140/90 avoid antiplatelets and AC would also avoid NSAIDS in the future MRA without no underlying vascular abnormality, would recommend repeat MRI Brain +/- contrast 1-2 months to rule out underlying lesion Problems: STEPHAN PALOMINO MD Mar 29, 2017 12:01
--- NOTE | 2017-03-29 20:18 | CONS ---
Date/Time of Note Date/Time of Note DATE: 03/29/17 TIME: 20:01 Assessment/Plan Assessment/Plan Chief Complaint/Hosp Course Assessment: Syncope secondary to sinus pause - 3.1 second pause, possibly in setting of intracranial process or seizure activity Acute hemorrhagic stroke with prior history of hemorrhagic stroke - per neurology Paroxysmal atrial fibrillation - currently sinus rhythm Accelerated hypertension - blood pressures now improved Acute kidney injury on chronic kidney disease Dyslipidemia Hypothyroidism Benign prostate hyperplasia Recommendations: -discussed risks and benefits of permanent pacemaker implantation - patient is currently reluctant to proceed -continue telemetry monitoring -check TSH -discontinue amiodarone, avoid negative chronotropic or AV anahi blocking agents -no anticoagulant or antiplatelet therapy due to recurrent hemorrhagic strokes -amlodipine 2.5mg daily -echocardiogram showed LVEF 70% Problems: Consultation Date/Type/Reason Admit Date/Time Mar 25, 2017 at 10:53 Type of Consultation: Cardiology Reason for Consultation sinus pause Hx of Present Illness The patient is an 89 year-old male who presents with right upper extremity weakness and is found to have an acute intracranial hemorrhage. He previously had a hemorrhagic stroke three years ago in the setting on being on anticoagulation for paroxysmal atrial fibrillation. After that event, he was taken off of all anticoagulants or antiplatelets. He has hypertension, but reports being taken off of all blood pressure medications several months ago due to low blood pressures. On this presentation , his blood pressure was elevated at 208/116. While undergoing physical therapy today, patient was noted to have a period of unresponsiveness for approximately 10 seconds. Patient does not recall the incident. Telemetry at the time shows a sinus pause for 3.1 seconds. He denies a prior history of syncope or presyncope. 14 point review of systems negative other than per HPI. Past Medical History Paroxysmal atrial fibrillation Hypertension Dyslipidemia Hypothyroidism Benign prostate hyperplasia History of hemorrhagic stroke Past Surgical History Lower back surgery Social History Alcohol Use: none Smoking Status: Never smoker Drug Use: none Exam/Review of Systems Vital Signs Vitals Vital Signs Date Time Temp Pulse Resp B/P Pulse Ox O2 Delivery O2 Flow Rate FiO2 03/29/17 18:31 98.1 61 19 132/60 96 03/29/17 08:22 Nasal Cannula 2.0 Intake and Output 03/28/17 03/28/17 03/29/17 15:00 23:00 07:00 Intake Total 550 ml 400 ml Output Total 550 ml 300 ml Balance 0 ml 100 ml Exam Constitutional: alert, well developed Psych: nl mood/affect, no complaints Head: atraumatic, normocephalic Eyes: nl conjunctiva, nl lids ENMT: nl external ears & nose, nl nasal mucosa & septum Neck: non-tender, supple, No jvd Respiratory: clear to auscultation, normal air movement Cardiovascular: regular rate and rhythm Gastrointestinal: non-tender, soft Musculoskeletal: muscle weakness (right upper extremity) Extremities: No clubbing, No cyanosis, No edema 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: nl mental status, nl speech Results Result Diagram: 03/28/17 0631 03/29/17 0630 Results 24 hrs Laboratory Tests Test 03/29/17 06:30 Sodium Level 130 L Potassium Level 4.4 Chloride Level 101 Carbon Dioxide Level 26 Anion Gap 7 L Blood Urea Nitrogen 35 H Creatinine 1.49 H Glucose Level 136 Calcium Level 8.9 Phosphorus Level 3.4 Magnesium Level 2.1 Medications Medications Current Medications Ondansetron HCl (Zofran Inj) 4 mg Q6H PRN IV NAUSEA AND/OR VOMITING; Start 03/25 at 03:00 Acetaminophen (Tylenol Liquid) 650 mg Q6H PRN PO PAIN LEVEL 1-3 OR FEVER Last administered on 03/27/17 05:32; Admin Dose 650 MG; Start 03/25/17 at 03:00 Docusate Sodium (Colace) 100 mg Q12H PRN PO CONSTIPATION; Start 03/25/17 at 03: 00 Bisacodyl (Dulcolax) 5 mg DAILY PRN PO CONSTIPATION Last administered on 05:58; Admin Dose 5 MG; Start 03/25/17 at 03:00 Acetaminophen (Tylenol Tab) 650 mg Q4H PRN PO TEMP GREATER THAN 99.6F; Start at 03:00 Docusate Sodium (Colace) 100 mg BID PO Last administered on 03/29/17 08:46; Admin Dose 100 MG; Start 03/25/17 at 09:00 Lorazepam (Ativan) 2 mg Q4 PRN IV AGITATION/ANXIETY; Start 03/25/17 at 21:00 Amiodarone HCl (Cordarone) 200 mg DAILY PO Last administered on 03/29/17 08:46 ; Admin Dose 200 MG; Start 03/27/17 at 09:00 Tamsulosin HCl (Flomax) 0.4 mg HS PO Last administered on 03/28/17 21:34; Admin Dose 0.4 MG; Start 03/26/17 at 21:00 Zolpidem Tartrate (Ambien) 5 mg HS PRN PO INSOMNIA Last administered on 21:25; Admin Dose 5 MG; Start 03/26/17 at 21:30 Pantoprazole (Protonix Tab) 40 mg DAILY@06 PO Last administered on 03/29/17 05 :23; Admin Dose 40 MG; Start 03/29/17 at 06:00 MARIETTA ROJAS MD Mar 29, 2017 20:13
[2017-03-29] MEDS: TAMSULOSIN (SR) 0.4 MG CAP PO SCH (21:56)
--- NOTE | 2017-03-29 23:39 | PRO ---
DATE OF PROCEDURE: 03/29/2017 HISTORY: This is a patient with possible syncope. EEG is to rule out seizure activity. CURRENT MEDICATIONS: Keppra. PROCEDURE: Utilizing a 16-channel EEG machine, cap scalp electrodes were applied in accordance with the International 10- 20 System. [id number] and [id number] montages were displayed. Electrical impedances were measured and reported. DESCRIPTION: During a resting state, posterior dominant rhythm of about 8-9 hertz were seen bihemispherically. Photic stimulation had a good response. Hyperventilation did not attenuate the rhythm. There was no focal lateralizing or epileptiform discharge identified. INTERPRETATION: This is a normal EEG. A normal EEG does not exclude seizure disorder. Please correlate clinically. Dictated By: Genesis Ivory MD /rodríguez/jarek /Document#: [id number]
[2017-03-30] VITALS (12 sets, daily range): BP systolic 140–180; BP diastolic 68–85; PULSE 56–65; RESP 19–20
[2017-03-30] MEDS: PANTOPRAZOLE (EC) 40 MG TAB PO SCH (06:50)
[2017-03-30] MEDS: LEVOTHYROXINE 100 MCG TAB PO SCH (06:50)
[2017-03-30 07:07] LABS: BASOPHILS % 0.1 % (0.0-2.0); EOSINOPHILS # 0.1 10^3/ul (0.0-0.5); EOSINOPHILS % 0.6 % (0.0-7.0); HEMATOCRIT 40.8 % (42.0-52.0); HEMOGLOBIN 13.8 g/dl (14.0-18.0); LYMPHOCYTES # 0.8 10^3/ul (0.8-2.9); LYMPHOCYTES % 8.5 % (15.0-51.0); MEAN CORPUSCULAR HEMOGLOBIN 33.4 pg (29.0-33.0); MEAN CORPUSCULAR HGB CONC 33.8 g/dl (32.0-37.0); MEAN CORPUSCULAR VOLUME 98.8 fl (82.0-101.0); MEAN PLATELET VOLUME 10.9 fl (7.4-10.4); MONOCYTE # 1.2 10^3/ul (0.3-0.9); MONOCYTES % 12.9 % (0.0-11.0); NEUTROPHILS % 77.4 % (39.0-77.0); PLATELET COUNT 196 10^3/UL (140-415); RED BLOOD COUNT 4.13 10^6/ul (4.70-6.10); RED CELL DISTRIBUTION WIDTH 12.5 % (11.5-14.5); WHITE BLOOD COUNT 9.3 10^3/ul (4.8-10.8)
[2017-03-30 07:33] LABS: CREATININE 1.34 mg/dl (0.61-1.24); MAGNESIUM 2.1 mg/dl (1.7-2.5); PHOSPHORUS 3.2 mg/dl (2.5-4.9); POTASSIUM 4.5 mmol/L (3.5-5.1)
[2017-03-30] MEDS ORDERED: AMLODIPINE 2.5 MG TAB PO SCH (09:00)
[2017-03-30] MEDS: DOCUSATE SODIUM 100 MG CAP PO SCH ×2 (09:13→21:20)
--- NOTE | 2017-03-30 10:53 | PN ---
DATE: 03/30/2017 SUBJECTIVE DATA: The patient is stable. Overnight, the patient did have a pause on telemetry, was seen by cardiology with recommendations of pacemaker placement. No other events noted. OBJECTIVE DATA: VITAL SIGNS: Blood pressure 150/75, respirations 16, pulse 61, temperature 98.3. HEENT: Head is normocephalic. NECK: Supple. HEART: Regular rate. LUNGS: Diminished breath sounds at the base. ABDOMEN: Soft, nontender to palpation. No rebound or guarding. EXTREMITIES: Negative for clubbing, cyanosis. No edema. DERMATOLOGIC: No rashes. MUSCULOSKELETAL: No joint effusion. NEUROLOGIC: The patient has weakness on the right hand. No significant change. LABORATORY AND DIAGNOSTIC DATA: Reviewed. Sodium is 132, BUN 31, creatinine 1.34. ASSESSMENT AND PLAN: 1. Nonoliguric acute kidney injury on top of chronic kidney disease, etiology secondary to hemodynamics. Renal function is slowly improving. Continue current treatment plan. Supportive care. Renally dose all meds. 2. Hyponatremia, likely due to acute kidney injury. Sodium levels are improving. Continue free water restriction. 3. Anemia. Monitor H and H levels. 4. Mineral bone disorder. Monitor calcium and phosphorus levels. 5. Arrhythmia. The patient is being followed by Cardiology. Possible pacemaker placement. 6. Hypertension. Continue current blood pressure regimen. 7. Acute hemorrhagic cerebrovascular accident with right hand and right sided weakness. Continue to monitor. 8. Benign prostatic hypertrophy. Continue medical management. 9. Hypothyroidism. Continue Synthroid. 10. Dyslipidemia. Continue statin therapy. Dictated By: Lee Pagan DO /rodríguez/dirk /Document#: [id number]
--- NOTE | 2017-03-30 11:32 | CONS ---
Date/Time of Note Date/Time of Note DATE: 03/30/17 TIME: 11:31 Consult Date/Type/Reason Admit Date/Time Mar 25, 2017 at 10:53 Initial Consult Date 03/25/17 Type of Consultation: Neurology Reason for Consultation syncope eval Ordering Provider: BUSHRA GRAHAM MD Subjective remains stable no further syncopal episodes EEG normal Objective Vital Signs Date Time Temp Pulse Resp B/P Pulse Ox O2 Delivery O2 Flow Rate FiO2 03/30/17 09:04 56 03/30/17 07:47 98.3 20 150/77 98 03/30/17 05:15 2.0 03/30/17 00:00 Nasal Cannula Intake and Output 03/29/17 03/29/17 03/30/17 15:00 23:00 07:00 Intake Total 700 ml 300 ml Output Total 700 ml 600 ml Balance 0 ml -300 ml Exam awake and alert oriented x3 follows all commands no aphasia CN: JESSICA, blinks to threat appropriately no facial asymmetry mild dysarthria Motor: right hand 0/5 proximal strength in biceps and triceps is full 5/5 otherwise strength in RLE and LUE and LLE 5/5 Coordination: unable to perform on right due to weakness Sensory is intact throughout Results/Medications Result Diagram: 03/30/17 0617 03/30/17 0617 Results 24 hrs Laboratory Tests Test 03/30/17 06:17 White Blood Count 9.3 Red Blood Count 4.13 L Hemoglobin 13.8 L Hematocrit 40.8 L Mean Corpuscular Volume 98.8 Mean Corpuscular Hemoglobin 33.4 H Mean Corpuscular Hemoglobin Concent 33.8 Red Cell Distribution Width 12.5 Platelet Count 196 Mean Platelet Volume 10.9 H Neutrophils % 77.4 H Lymphocytes % 8.5 L Monocytes % 12.9 H Eosinophils % 0.6 Basophils % 0.1 Nucleated Red Blood Cells % 0.0 Neutrophils # (Manual) 7.2 Lymphocytes # 0.8 Monocytes # 1.2 H Eosinophils # 0.1 Basophils # 0.0 Nucleated Red Blood Cells # 0.0 Sodium Level 132 L Potassium Level 4.5 Chloride Level 99 Carbon Dioxide Level 29 Anion Gap 9 Blood Urea Nitrogen 31 H Creatinine 1.34 H Glucose Level 117 Calcium Level 9.0 Phosphorus Level 3.2 Magnesium Level 2.1 Thyroid Stimulating Hormone (TSH) 3.990 Medications Current Medications Ondansetron HCl (Zofran Inj) 4 mg Q6H PRN IV NAUSEA AND/OR VOMITING; Start 03/25 at 03:00 Acetaminophen (Tylenol Liquid) 650 mg Q6H PRN PO PAIN LEVEL 1-3 OR FEVER Last administered on 03/27/17 05:32; Admin Dose 650 MG; Start 03/25/17 at 03:00 Docusate Sodium (Colace) 100 mg Q12H PRN PO CONSTIPATION; Start 03/25/17 at 03: 00 Bisacodyl (Dulcolax) 5 mg DAILY PRN PO CONSTIPATION Last administered on 05:58; Admin Dose 5 MG; Start 03/25/17 at 03:00 Acetaminophen (Tylenol Tab) 650 mg Q4H PRN PO TEMP GREATER THAN 99.6F; Start at 03:00 Docusate Sodium (Colace) 100 mg BID PO Last administered on 03/30/17 09:13; Admin Dose 100 MG; Start 03/25/17 at 09:00 Lorazepam (Ativan) 2 mg Q4 PRN IV AGITATION/ANXIETY; Start 03/25/17 at 21:00 Tamsulosin HCl (Flomax) 0.4 mg HS PO Last administered on 03/29/17 21:56; Admin Dose 0.4 MG; Start 03/26/17 at 21:00 Zolpidem Tartrate (Ambien) 5 mg HS PRN PO INSOMNIA Last administered on 21:25; Admin Dose 5 MG; Start 03/26/17 at 21:30 Pantoprazole (Protonix Tab) 40 mg DAILY@06 PO Last administered on 03/30/17 06 :50; Admin Dose 40 MG; Start 03/29/17 at 06:00 Amlodipine Besylate (Norvasc) 2.5 mg DAILY PO Last administered on 03/30/17 09 :14; Admin Dose 2.5 MG; Start 03/30/17 at 09:00 Assessment/Plan Chief Complaint/Hosp Course 89 year old male with history of afib prior hemorrhagic CVA in setting of AC now off anticoagulation and antiplatelet agents p/w right hand weakness in setting of left frontal convexity ICH. MRI Brain 1. Acute/subacute 1.8 cm hematoma in the posterior left superior frontal gyrus with mild surrounding vasogenic edema. 2. Probable hemosiderin in the posterolateral aspect of the left thalamus/ posterior limb of the internal capsule. Smaller punctate foci are also noted in right temporal and left frontal lobes.3. Moderate chronic small vessel ischemic changes.4. Mild to moderate generalized cerebral and mild cerebellar volume loss. Recommendations: Had episodes probably syncope, EEG also ordered to evaluate - resulted normal cardiology evaluation for possible PPM medical terminologist goal SBP <140/90 avoid antiplatelets and AC would also avoid NSAIDS in the future MRA without no underlying vascular abnormality, would recommend repeat MRI Brain +/- contrast 1-2 months to rule out underlying lesion dc planning to [place] once cleared by cardiology, will sign off Problems: STEPHAN PALOMINO MD Mar 30, 2017 11:32
--- NOTE | 2017-03-30 11:48 | PN ---
Date/Time of Note Date/Time of Note DATE: 03/30/17 TIME: 11:45 Assessment/Plan VTE Prophylaxis VTE Prophylaxis Intervention: SCD's Lines/Catheters IV Catheter Type (from Nrs): Saline Lock Urinary Cath still in place: No Assessment/Plan Assessment/Plan 1. Syncope due to long pause(3.1 seconds), no recurrence, normal TSH and EEG, follow up with cariology 2. Acute left frontal hemorrhage with right hand weakness, continue PT/OT 3. Paroxysmal A FIb, sinus now, off of amiodarone, no anticoagulation 3. Hypertension, add norvasc 4. Hypothyroidism, on supplement 5. BPH: Continue flomax 6. DVT prophylaxis: SCD's Subjective 24 Hr Interval Summary Free Text/Dictation no syncope. Exam/Review of Systems Vital Signs Vitals Vital Signs Date Time Temp Pulse Resp B/P Pulse Ox O2 Delivery O2 Flow Rate FiO2 03/30/17 09:04 56 03/30/17 07:47 98.3 20 150/77 98 03/30/17 05:15 2.0 03/30/17 00:00 Nasal Cannula Intake and Output 03/29/17 03/29/17 03/30/17 15:00 23:00 07:00 Intake Total 700 ml 300 ml Output Total 700 ml 600 ml Balance 0 ml -300 ml Exam Constitutional: alert, oriented, well developed Psych: nl mood/affect, no complaints Head: atraumatic, normocephalic Eyes: EOMI, PERRL, nl conjunctiva, nl lids ENMT: nl external ears & nose, nl lips & teeth, nl nasal mucosa & septum Neck: non-tender, supple Respiratory: clear to auscultation, normal air movement, No congested cough, No crackles/rales, No diminished breath sounds, No intercostal retraction, No labored breathing, No other, No respirations, No tactile fremitus, No wheezing Cardiovascular: nl pulses, regular rate and rhythm, No S3, No S4, No bruits, No diastolic murmur, No edema, No gallop, No irregular rhythm, No jugular venous distention (JVD), No murmurs/extra sounds, No other, No rub, No systolic murmur Gastrointestinal: nl liver, spleen, non-tender, soft, No ascites, No bowel sounds, No distended, No firm, No hepatomegaly, No mass , No other, No rebound or guarding, No splenomegaly, No surgical scars, No tender Musculoskeletal: nl extremities to inspection Extremities: normal pulses, No calf tenderness, No clubbing, No cyanosis, No edema, No other, No palpable cord, No pitting pedal edema, No tenderness 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: 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 II-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0 Neutrophils # (Manual) 7.2 Lymphocytes # 0.8 Monocytes # 1.2 H Eosinophils # 0.1 Basophils # 0.0 Nucleated Red Blood Cells # 0.0 Sodium Level 132 L Potassium Level 4.5 Chloride Level 99 Carbon Dioxide Level 29 Anion Gap 9 Blood Urea Nitrogen 31 H Creatinine 1.34 H Glucose Level 117 Calcium Level 9.0 Phosphorus Level 3.2 Magnesium Level 2.1 Thyroid Stimulating Hormone (TSH) 3.990 Medications Medications Current Medications Ondansetron HCl (Zofran Inj) 4 mg Q6H PRN IV NAUSEA AND/OR VOMITING; Start 03/25 at 03:00 Acetaminophen (Tylenol Liquid) 650 mg Q6H PRN PO PAIN LEVEL 1-3 OR FEVER Last administered on 03/27/17 05:32; Admin Dose 650 MG; Start 03/25/17 at 03:00 Docusate Sodium (Colace) 100 mg Q12H PRN PO CONSTIPATION; Start 03/25/17 at 03: 00 Bisacodyl (Dulcolax) 5 mg DAILY PRN PO CONSTIPATION Last administered on 05:58; Admin Dose 5 MG; Start 03/25/17 at 03:00 Acetaminophen (Tylenol Tab) 650 mg Q4H PRN PO TEMP GREATER THAN 99.6F; Start at 03:00 Docusate Sodium (Colace) 100 mg BID PO Last administered on 03/30/17 09:13; Admin Dose 100 MG; Start 03/25/17 at 09:00 Lorazepam (Ativan) 2 mg Q4 PRN IV AGITATION/ANXIETY; Start 03/25/17 at 21:00 Tamsulosin HCl (Flomax) 0.4 mg HS PO Last administered on 03/29/17 21:56; Admin Dose 0.4 MG; Start 03/26/17 at 21:00 Zolpidem Tartrate (Ambien) 5 mg HS PRN PO INSOMNIA Last administered on 21:25; Admin Dose 5 MG; Start 03/26/17 at 21:30 Pantoprazole (Protonix Tab) 40 mg DAILY@06 PO Last administered on 03/30/17 06 :50; Admin Dose 40 MG; Start 03/29/17 at 06:00 Amlodipine Besylate (Norvasc) 2.5 mg DAILY PO Last administered on 03/30/17 09 :14; Admin Dose 2.5 MG; Start 03/30/17 at 09:00 KYLAH SUTHERLAND MD Mar 30, 2017 11:48
[2017-03-30 12:17] LABS: ADD UMIC YES; UR ASCORBIC ACID NEGATIVE (NEGATIVE); UR BILIRUBIN (Dip) NEGATIVE (NEGATIVE); UR BLOOD (Dip) NEGATIVE (NEGATIVE); UR CLARITY CLEAR (CLEAR); UR COLOR YELLOW (YELLOW); UR GLUCOSE (Dip) NEGATIVE (NEGATIVE); UR KETONES (Dip) NEGATIVE (NEGATIVE); UR LEUKOCYTE ESTERASE (Dip) NEGATIVE Leu/ul (NEGATIVE); UR MUCUS FEW /HPF (NONE SEEN); UR NITRITE (Dip) NEGATIVE (NEGATIVE); UR RBC 0 /HPF (0-5); UR SPECIFIC GRAVITY (Dip) 1.023 (1.003-1.030); UR TOTAL PROTEIN (Dip) 1+ mg/dl (NEGATIVE); UR UROBILINOGEN (Dip) 1+ mg/dL (NEGATIVE)
--- NOTE | 2017-03-30 16:00 | CONS ---
Date/Time of Note Date/Time of Note DATE: 03/30/17 TIME: 15:56 Assessment/Plan Assessment/Plan Chief Complaint/Hosp Course Assessment: Syncope secondary to sinus pause - 3.1 second pause Acute hemorrhagic stroke with prior history of hemorrhagic stroke - per neurology Paroxysmal atrial fibrillation - currently sinus rhythm Accelerated hypertension - blood pressures now improved Acute kidney injury on chronic kidney disease Dyslipidemia Hypothyroidism Benign prostate hyperplasia Recommendations: -permanent pacemaker implantation, patient and family now agreeable -amiodarone has been discontinued, can restart after pacemaker -no anticoagulant or antiplatelet therapy due to recurrent hemorrhagic strokes -increase amlodipine to 5mg daily -echocardiogram showed LVEF 70% Problems: Consultation Date/Type/Reason Admit Date/Time Mar 25, 2017 at 10:53 Initial Consult Date 03/25/17 Type of Consultation: Cardiology 24 HR Interval Summary Free Text/Dictation No further syncope or pauses. EEG normal. Patient and family now agreeable to permanent pacemaker. Detailed Summary Additional Comments 14 point review of systems without changes. Exam/Review of Systems Vital Signs Vitals Vital Signs Date Time Temp Pulse Resp B/P Pulse Ox O2 Delivery O2 Flow Rate FiO2 03/30/17 15:20 2.0 03/30/17 12:23 62 03/30/17 11:53 98.6 20 148/68 98 03/30/17 09:00 Nasal Cannula Intake and Output 03/29/17 03/29/17 03/30/17 15:00 23:00 07:00 Intake Total 700 ml 300 ml Output Total 700 ml 600 ml Balance 0 ml -300 ml Exam Constitutional: alert, well developed Psych: nl mood/affect, no complaints Head: atraumatic, normocephalic Eyes: nl conjunctiva, nl lids ENMT: nl external ears & nose, nl nasal mucosa & septum Neck: non-tender, supple, No jvd Respiratory: clear to auscultation, normal air movement Cardiovascular: regular rate and rhythm Gastrointestinal: non-tender, soft Musculoskeletal: muscle weakness (right upper extremity) Extremities: No clubbing, No cyanosis, No edema 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: nl mental status, nl speech Results Result Diagram: 03/30/17 0617 03/30/17 0617 Results 24 hrs Laboratory Tests Test 03/30/17 06:17 03/30/17 11:45 White Blood Count 9.3 Red Blood Count 4.13 L Hemoglobin 13.8 L Hematocrit 40.8 L Mean Corpuscular Volume 98.8 Mean Corpuscular Hemoglobin 33.4 H Mean Corpuscular Hemoglobin Concent 33.8 Red Cell Distribution Width 12.5 Platelet Count 196 Mean Platelet Volume 10.9 H Neutrophils % 77.4 H Lymphocytes % 8.5 L Monocytes % 12.9 H Eosinophils % 0.6 Basophils % 0.1 Nucleated Red Blood Cells % 0.0 Neutrophils # (Manual) 7.2 Lymphocytes # 0.8 Monocytes # 1.2 H Eosinophils # 0.1 Basophils # 0.0 Nucleated Red Blood Cells # 0.0 Sodium Level 132 L Potassium Level 4.5 Chloride Level 99 Carbon Dioxide Level 29 Anion Gap 9 Blood Urea Nitrogen 31 H Creatinine 1.34 H Glucose Level 117 Calcium Level 9.0 Phosphorus Level 3.2 Magnesium Level 2.1 Thyroid Stimulating Hormone (TSH) 3.990 Urine Color YELLOW Urine Clarity CLEAR Urine pH 5.0 Urine Specific [place] 1.023 Urine Ketones NEGATIVE Urine Nitrite NEGATIVE Urine Bilirubin NEGATIVE Urine Urobilinogen 1+ H Urine Leukocyte Esterase NEGATIVE Urine Microscopic RBC 0 Urine Microscopic WBC 1 Urine Mucus FEW A Urine Hemoglobin NEGATIVE Urine Osmolality 771 Urine Random Creatinine 175.78 Urine Random Sodium 25 L Urine Glucose NEGATIVE Urine Total Protein 62.0 H Medications Medications Current Medications Ondansetron HCl (Zofran Inj) 4 mg Q6H PRN IV NAUSEA AND/OR VOMITING; Start 03/25 at 03:00 Acetaminophen (Tylenol Liquid) 650 mg Q6H PRN PO PAIN LEVEL 1-3 OR FEVER Last administered on 03/27/17 05:32; Admin Dose 650 MG; Start 03/25/17 at 03:00 Docusate Sodium (Colace) 100 mg Q12H PRN PO CONSTIPATION; Start 03/25/17 at 03: 00 Bisacodyl (Dulcolax) 5 mg DAILY PRN PO CONSTIPATION Last administered on 05:58; Admin Dose 5 MG; Start 03/25/17 at 03:00 Acetaminophen (Tylenol Tab) 650 mg Q4H PRN PO TEMP GREATER THAN 99.6F; Start at 03:00 Docusate Sodium (Colace) 100 mg BID PO Last administered on 03/30/17 09:13; Admin Dose 100 MG; Start 03/25/17 at 09:00 Lorazepam (Ativan) 2 mg Q4 PRN IV AGITATION/ANXIETY; Start 03/25/17 at 21:00 Tamsulosin HCl (Flomax) 0.4 mg HS PO Last administered on 03/29/17 21:56; Admin Dose 0.4 MG; Start 03/26/17 at 21:00 Zolpidem Tartrate (Ambien) 5 mg HS PRN PO INSOMNIA Last administered on 21:25; Admin Dose 5 MG; Start 03/26/17 at 21:30 Pantoprazole (Protonix Tab) 40 mg DAILY@06 PO Last administered on 03/30/17 06 :50; Admin Dose 40 MG; Start 03/29/17 at 06:00 Amlodipine Besylate (Norvasc) 2.5 mg DAILY PO Last administered on 03/30/17 09 :14; Admin Dose 2.5 MG; Start 03/30/17 at 09:00 MARIETTA ROJAS MD Mar 30, 2017 16:00
--- NOTE | 2017-03-30 20:01 | CONS ---
Date/Time of Note Date/Time of Note DATE: 03/30/17 TIME: 19:58 Assessment/Plan Assessment/Plan Chief Complaint/Hosp Course Chief Complaint/Hosp Course Assessment: Syncope secondary to sinus pause - 3.1 second pause Acute hemorrhagic stroke with prior history of hemorrhagic stroke - per neurology Paroxysmal atrial fibrillation - currently sinus rhythm Accelerated hypertension - blood pressures now improved Acute kidney injury on chronic kidney disease Dyslipidemia Hypothyroidism Benign prostate hyperplasia Problems: Additional Assessment/Plan The pt will need a pacer implant Will plan to do it tomorrow. Will keep him NPO after MN, and will get a consent for the pacer implant. Consultation Date/Type/Reason Admit Date/Time Mar 25, 2017 at 10:53 Referring Provider: MARIETTA ROJAS MD Hx of Present Illness This is a 89 y/o male with pmh of htn, HLD and hemorragic stroke and p-atrial fib who had a symptomatic 3.1 sec pause and syncope and has been having SSS Will need a pacer. Psychological: nl mood/affect, no complaints Social History Alcohol Use: none Smoking Status: Never smoker Drug Use: none Exam/Review of Systems Vital Signs Vitals Vital Signs Date Time Temp Pulse Resp B/P Pulse Ox O2 Delivery O2 Flow Rate FiO2 03/30/17 16:17 98.3 66 20 140/70 96 03/30/17 15:20 2.0 03/30/17 09:00 Nasal Cannula Intake and Output 03/29/17 03/29/17 03/30/17 15:00 23:00 07:00 Intake Total 700 ml 300 ml Output Total 700 ml 600 ml Balance 0 ml -300 ml Exam Constitutional: alert, oriented, well developed Eyes: nl conjunctiva Neck: non-tender, supple Respiratory: clear to auscultation Cardiovascular: regular rate and rhythm, systolic murmur Gastrointestinal: soft Results Result Diagram: 03/30/17 0617 03/30/17 0617 Results 24 hrs Laboratory Tests Test 03/30/17 06:17 03/30/17 11:45 White Blood Count 9.3 Red Blood Count 4.13 L Hemoglobin 13.8 L Hematocrit 40.8 L Mean Corpuscular Volume 98.8 Mean Corpuscular Hemoglobin 33.4 H Mean Corpuscular Hemoglobin Concent 33.8 Red Cell Distribution Width 12.5 Platelet Count 196 Mean Platelet Volume 10.9 H Neutrophils % 77.4 H Lymphocytes % 8.5 L Monocytes % 12.9 H Eosinophils % 0.6 Basophils % 0.1 Nucleated Red Blood Cells % 0.0 Neutrophils # (Manual) 7.2 Lymphocytes # 0.8 Monocytes # 1.2 H Eosinophils # 0.1 Basophils # 0.0 Nucleated Red Blood Cells # 0.0 Sodium Level 132 L Potassium Level 4.5 Chloride Level 99 Carbon Dioxide Level 29 Anion Gap 9 Blood Urea Nitrogen 31 H Creatinine 1.34 H Glucose Level 117 Calcium Level 9.0 Phosphorus Level 3.2 Magnesium Level 2.1 Thyroid Stimulating Hormone (TSH) 3.990 Urine Color YELLOW Urine Clarity CLEAR Urine pH 5.0 Urine Specific [place] 1.023 Urine Ketones NEGATIVE Urine Nitrite NEGATIVE Urine Bilirubin NEGATIVE Urine Urobilinogen 1+ H Urine Leukocyte Esterase NEGATIVE Urine Microscopic RBC 0 Urine Microscopic WBC 1 Urine Mucus FEW A Urine Hemoglobin NEGATIVE Urine Osmolality 771 Urine Random Creatinine 175.78 Urine Random Sodium 25 L Urine Glucose NEGATIVE Urine Total Protein 62.0 H Medications Medications Current Medications Ondansetron HCl (Zofran Inj) 4 mg Q6H PRN IV NAUSEA AND/OR VOMITING; Start 03/25 at 03:00 Acetaminophen (Tylenol Liquid) 650 mg Q6H PRN PO PAIN LEVEL 1-3 OR FEVER Last administered on 03/27/17 05:32; Admin Dose 650 MG; Start 03/25/17 at 03:00 Docusate Sodium (Colace) 100 mg Q12H PRN PO CONSTIPATION; Start 03/25/17 at 03: 00 Bisacodyl (Dulcolax) 5 mg DAILY PRN PO CONSTIPATION Last administered on 05:58; Admin Dose 5 MG; Start 03/25/17 at 03:00 Acetaminophen (Tylenol Tab) 650 mg Q4H PRN PO TEMP GREATER THAN 99.6F; Start at 03:00 Docusate Sodium (Colace) 100 mg BID PO Last administered on 03/30/17 09:13; Admin Dose 100 MG; Start 03/25/17 at 09:00 Lorazepam (Ativan) 2 mg Q4 PRN IV AGITATION/ANXIETY; Start 03/25/17 at 21:00 Tamsulosin HCl (Flomax) 0.4 mg HS PO Last administered on 03/29/17 21:56; Admin Dose 0.4 MG; Start 03/26/17 at 21:00 Zolpidem Tartrate (Ambien) 5 mg HS PRN PO INSOMNIA Last administered on 21:25; Admin Dose 5 MG; Start 03/26/17 at 21:30 Pantoprazole (Protonix Tab) 40 mg DAILY@06 PO Last administered on 03/30/17 06 :50; Admin Dose 40 MG; Start 03/29/17 at 06:00 Amlodipine Besylate (Norvasc) 5 mg DAILY PO ; Start 03/31/17 at 09:00 EARLE WHITEHEAD MD Mar 30, 2017 20:01
[2017-03-30] MEDS: TAMSULOSIN (SR) 0.4 MG CAP PO SCH (21:19)
[2017-03-31] VITALS (26 sets, daily range): BP systolic 95–163; BP diastolic 57–75; PULSE 52–67; RESP 13–20
[2017-03-31] MEDS: PANTOPRAZOLE (EC) 40 MG TAB PO SCH (05:47)
[2017-03-31] MEDS: LEVOTHYROXINE 100 MCG TAB PO SCH (05:47)
[2017-03-31] MEDS: AMLODIPINE 2.5 MG TAB PO SCH (08:06)
[2017-03-31] MEDS: DOCUSATE SODIUM 100 MG CAP PO SCH ×2 (09:00→21:14)
--- NOTE | 2017-03-31 11:05 | PN ---
DATE: 03/31/2017 SUBJECTIVE DATA: The patient is scheduled for a pacemaker placement. Patient continues to have weakness in the right hand and right shoulder now. No other events noted. OBJECTIVE DATA: VITAL SIGNS: Blood pressure 163/72, respirations 20, pulse 62, temperature 97.8. HEENT: Head is normocephalic. NECK: Supple. HEART: Regular rate. LUNGS: Show diminished breath sounds at the base. ABDOMEN: Soft, nontender to palpation. No rebound or guarding. EXTREMITIES: Negative for clubbing, cyanosis. No edema. DERMATOLOGIC: Clean. No rashes. MUSCULOSKELETAL: No joint effusion. NEUROLOGIC: No change in exam. MEDICATIONS: Reviewed. LABORATORY AND DIAGNOSTIC DATA: Pending. ASSESSMENT AND PLAN: 1. Nonoliguric acute kidney injury on top of chronic kidney disease, etiology secondary to hemodynamics. Renal function is improving. Continue current treatment plan. Supportive care. Renally dose all medicines. 2. Hyponatremia secondary to acute kidney injury. Continue to limit free water intake. 3. Anemia. Monitor H and H levels. 4. Mineral bone disorder. Monitor calcium and phosphorus levels. 5. Arrhythmia. Patient is being followed by Cardiology pending pacemaker placement. 6. Hypertension. Blood pressures are elevated. Will resume blood pressure medications being managed by primary team. 7. Acute hemorrhagic cerebrovascular accident with right hand, right arm weakness. Continue to monitor. 8. Benign prostatic hypertrophy. Continue medical management. 9. Hypothyroidism. Continue Synthroid. 10. Dyslipidemia. Continue statin therapy. Dictated By: Lee Pagan DO /[email or web address] /Document#: [id number]
--- NOTE | 2017-03-31 14:20 | PN ---
Date/Time of Note Date/Time of Note DATE: 03/31/17 TIME: 14:13 Assessment/Plan VTE Prophylaxis VTE Prophylaxis Intervention: SCD's Lines/Catheters IV Catheter Type (from Nrs): Saline Lock Urinary Cath still in place: No Assessment/Plan Assessment/Plan 1. Syncope due to long pause(3.1 seconds), pacemaker today 2. Acute left frontal hemorrhage with right hand weakness, continue PT/OT, right arm pain, muscular 3. Paroxysmal A FIb, sinus now, off of amiodarone, no anticoagulation 3. Hypertension, add norvasc 4. Hypothyroidism, on supplement 5. BPH: Continue flomax 6. DVT prophylaxis: SCD's Subjective 24 Hr Interval Summary Free Text/Dictation weakness on right arm pain Exam/Review of Systems Vital Signs Vitals Vital Signs Date Time Temp Pulse Resp B/P Pulse Ox O2 Delivery O2 Flow Rate FiO2 03/31/17 12:00 60 03/31/17 11:41 98.1 20 112/58 97 03/31/17 08:32 2.0 03/31/17 08:20 Nasal Cannula Intake and Output 03/30/17 03/30/17 03/31/17 15:00 23:00 07:00 Intake Total 700 ml 200 ml Output Total 500 ml 500 ml Balance 200 ml -300 ml Exam Constitutional: alert, oriented, well developed Psych: nl mood/affect, no complaints Head: atraumatic, normocephalic Eyes: EOMI, nl conjunctiva, nl lids ENMT: nl external ears & nose, nl lips & teeth, nl nasal mucosa & septum Neck: non-tender, supple Respiratory: clear to auscultation, normal air movement, No congested cough, No crackles/rales, No diminished breath sounds, No intercostal retraction, No labored breathing, No other, No respirations, No tactile fremitus, No wheezing Cardiovascular: nl pulses, regular rate and rhythm, No S3, No S4, No bruits, No diastolic murmur, No edema, No gallop, No irregular rhythm, No jugular venous distention (JVD), No murmurs/extra sounds, No other, No rub, No systolic murmur Gastrointestinal: nl liver, spleen, non-tender, soft, No ascites, No bowel sounds, No distended, No firm, No hepatomegaly, No mass , No other, No rebound or guarding, No splenomegaly, No surgical scars, No tender Musculoskeletal: nl extremities to inspection Extremities: normal pulses, No calf tenderness, No clubbing, No cyanosis, No edema, No other, No palpable cord, No pitting pedal edema, No tenderness 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: [employer] II-XII intact, nl mental status, nl speech, other Skin: nl turgor Results Result Diagram: 03/30/1761603/30/17616 Medications Medications Current Medications Ondansetron HCl (Zofran Inj) 4 mg Q6H PRN IV NAUSEA AND/OR VOMITING; Start 03/25 at 03:00 Acetaminophen (Tylenol Liquid) 650 mg Q6H PRN PO PAIN LEVEL 1-3 OR FEVER Last administered on 03/27/17 05:32; Admin Dose 650 MG; Start 03/25/17 at 03:00 Docusate Sodium (Colace) 100 mg Q12H PRN PO CONSTIPATION; Start 03/25/17 at 03: 00 Bisacodyl (Dulcolax) 5 mg DAILY PRN PO CONSTIPATION Last administered on 05:58; Admin Dose 5 MG; Start 03/25/17 at 03:00 Acetaminophen (Tylenol Tab) 650 mg Q4H PRN PO TEMP GREATER THAN 99.6F Last administered on 03/31/17 08:07; Admin Dose 650 MG; Start 03/25/17 at 03:00 Docusate Sodium (Colace) 100 mg BID PO Last administered on 03/30/17 21:20; Admin Dose 100 MG; Start 03/25/17 at 09:00 Lorazepam (Ativan) 2 mg Q4 PRN IV AGITATION/ANXIETY; Start 03/25/17 at 21:00 Tamsulosin HCl (Flomax) 0.4 mg HS PO Last administered on 03/30/17 21:19; Admin Dose 0.4 MG; Start 03/26/17 at 21:00 Zolpidem Tartrate (Ambien) 5 mg HS PRN PO INSOMNIA Last administered on 21:25; Admin Dose 5 MG; Start 03/26/17 at 21:30 Pantoprazole (Protonix Tab) 40 mg DAILY@06 PO Last administered on 03/31/17 05 :47; Admin Dose 40 MG; Start 03/29/17 at 06:00 Amlodipine Besylate (Norvasc) 5 mg DAILY PO Last administered on 03/31/17t 08: 06; Admin Dose 5 MG; Start 03/31/17 at 09:00 KYLAH SUTHERLAND MD Mar 31, 2017 14:20
[2017-03-31 15:31] LABS: MICROALBUMIN 6.4 mg/dL
--- NOTE | 2017-03-31 15:31 | CONS ---
Date/Time of Note Date/Time of Note DATE: 03/31/17 TIME: 15:30 Assessment/Plan Assessment/Plan Chief Complaint/Hosp Course Assessment: Syncope secondary to sinus pause - 3.1 second pause Acute hemorrhagic stroke with prior history of hemorrhagic stroke - per neurology Paroxysmal atrial fibrillation - currently sinus rhythm Accelerated hypertension - blood pressures now improved Acute kidney injury on chronic kidney disease Dyslipidemia Hypothyroidism Benign prostate hyperplasia Recommendations: -permanent pacemaker implantation today -amiodarone has been discontinued, can restart after pacemaker -no anticoagulant or antiplatelet therapy due to recurrent hemorrhagic strokes -continue amlodipine 5mg daily -echocardiogram showed LVEF 70% Problems: Consultation Date/Type/Reason Admit Date/Time Mar 25, 2017 at 10:53 Initial Consult Date 03/25/17 Type of Consultation: Cardiology Referring Provider: MARIETTA ROJAS MD 24 HR Interval Summary Free Text/Dictation No acute events. Pacemaker implantation scheduled for today. Detailed Summary Additional Comments 14 point review of systems without changes. Exam/Review of Systems Vital Signs Vitals Vital Signs Date Time Temp Pulse Resp B/P Pulse Ox O2 Delivery O2 Flow Rate FiO2 03/31/17 12:00 60 03/31/17 11:41 98.1 20 112/58 97 03/31/17 08:32 2.0 03/31/17 08:20 Nasal Cannula Intake and Output 03/30/17 03/30/17 03/31/17 15:00 23:00 07:00 Intake Total 700 ml 200 ml Output Total 500 ml 500 ml Balance 200 ml -300 ml Exam Constitutional: alert, well developed Psych: nl mood/affect, no complaints Head: atraumatic, normocephalic Eyes: nl conjunctiva, nl lids ENMT: nl external ears & nose, nl nasal mucosa & septum Neck: non-tender, supple, No jvd Respiratory: clear to auscultation, normal air movement Cardiovascular: regular rate and rhythm Gastrointestinal: non-tender, soft Musculoskeletal: muscle weakness (right upper extremity) Extremities: No clubbing, No cyanosis, No edema 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: nl mental status, nl speech Results Result Diagram: 03/30/1761603/30/17616 Medications Medications Current Medications Ondansetron HCl (Zofran Inj) 4 mg Q6H PRN IV NAUSEA AND/OR VOMITING; Start 03/25 at 03:00 Acetaminophen (Tylenol Liquid) 650 mg Q6H PRN PO PAIN LEVEL 1-3 OR FEVER Last administered on 03/27/17 05:32; Admin Dose 650 MG; Start 03/25/17 at 03:00 Docusate Sodium (Colace) 100 mg Q12H PRN PO CONSTIPATION; Start 03/25/17 at 03: 00 Bisacodyl (Dulcolax) 5 mg DAILY PRN PO CONSTIPATION Last administered on 05:58; Admin Dose 5 MG; Start 03/25/17 at 03:00 Acetaminophen (Tylenol Tab) 650 mg Q4H PRN PO TEMP GREATER THAN 99.6F Last administered on 03/31/17 08:07; Admin Dose 650 MG; Start 03/25/17 at 03:00 Docusate Sodium (Colace) 100 mg BID PO Last administered on 03/30/17 21:20; Admin Dose 100 MG; Start 03/25/17 at 09:00 Lorazepam (Ativan) 2 mg Q4 PRN IV AGITATION/ANXIETY; Start 03/25/17 at 21:00 Tamsulosin HCl (Flomax) 0.4 mg HS PO Last administered on 03/30/17 21:19; Admin Dose 0.4 MG; Start 03/26/17 at 21:00 Zolpidem Tartrate (Ambien) 5 mg HS PRN PO INSOMNIA Last administered on 21:25; Admin Dose 5 MG; Start 03/26/17 at 21:30 Pantoprazole (Protonix Tab) 40 mg DAILY@06 PO Last administered on 03/31/17 05 :47; Admin Dose 40 MG; Start 03/29/17 at 06:00 Amlodipine Besylate (Norvasc) 5 mg DAILY PO Last administered on 03/31/17 08: 06; Admin Dose 5 MG; Start 03/31/17 at 09:00 MARIETTA ROJAS MD Mar 31, 2017 15:31
[2017-03-31] MEDS ORDERED: POLYMYXIN/BACITRACIN 1L IRRIG ONE (16:09)
[2017-03-31] MEDS ORDERED: IOHEXOL 300MG/ML 30 ML BTL ONE (16:09)
[2017-03-31] MEDS ORDERED: SODIUM CL BACTERIOSTATIC 30 ML INJ ONE (16:18)
[2017-03-31] MEDS ORDERED: LIDOCAINE 1% (MPF) 30 ML INJ ONE (16:18)
[2017-03-31] MEDS ORDERED: MINERAL OIL LIGHT 10 ML VIAL ONE (16:18)
--- NOTE | 2017-03-31 16:59 | HPN ---
Date/Time of Note Date/Time of Note DATE: 03/31/17 TIME: 16:59 Interval H&P Admission Note Pt. seen H&P reviewed: No system changes EARLE WHITEHEAD MD Mar 31, 2017 16:59
[2017-03-31] MEDS ORDERED: PHENYLephrine (100 MCG/ML) 5ML SYG ONE (17:32)
[2017-03-31] MEDS ORDERED: IOHEXOL 300MG/ML 30 ML BTL IV ONE (17:38)
[2017-03-31] MEDS ORDERED: DEXAMETHASONE 4 MG/ML 1 ML INJ ONE (17:38)
[2017-03-31] MEDS ORDERED: METOCLOPRAMIDE 10 MG INJ ONE (17:38)
[2017-03-31] MEDS ORDERED: ONDANSETRON 4 MG INJ ONE (17:38)
[2017-03-31] MEDS ORDERED: PROPOFOL 60 ML ONE (17:39)
[2017-03-31] MEDS ORDERED: CEFAZOLIN 1 GM INJ ONE (17:39)
--- NOTE | 2017-03-31 17:54 | SIPON ---
Date/Time of Note Date/Time of Note DATE: 03/31/17 TIME: 17:52 Operative Report Free Text/Dictation The pt is status post Pacer implant Preoperative Diagnosis Sick sinus syndrome. Postoperative Diagnosis same Operation/Procedure Performed Implantation of new pacemaker for sss Surgeon see signature line Estimated Blood Loss: none Transfusion Required: no Specimens pacemaker implant Grafts/Implants: none Grafts/Implants pacemaker Complications: no EARLE WHITEHEAD MD Mar 31, 2017 17:54
[2017-03-31] MEDS ORDERED: LABETALOL HCL 20MG INJ IV PRN (18:00)
[2017-03-31] MEDS ORDERED: EPHEDrine SULFATE 50 MG/5 ML SYG IV PRN (18:00)
[2017-03-31] MEDS ORDERED: ONDANSETRON 4 MG INJ IV PRN (18:00)
[2017-03-31] MEDS ORDERED: MEPERIDINE 25 MG INJ IV PRN (18:00)
[2017-03-31] MEDS ORDERED: hydrALAzine 20 MG INJ IV PRN (18:00)
[2017-03-31] MEDS ORDERED: morphine (1 MG/ML) 10ML SYRINGE IV PRN ×3 (18:00)
[2017-03-31] MEDS ORDERED: DIPHENHYDRAMINE 50 MG INJ IV PRN (18:00)
[2017-03-31] MEDS ORDERED: FENTAnyl 50 MCG/ML VIAL IV PRN ×3 (18:00)
--- NOTE | 2017-03-31 18:04 | RADRPT ---
PROCEDURE: Intraoperative imaging of the chest with fluoroscopy. CLINICAL INDICATION: Pacemaker placement. Intraoperative. TECHNIQUE: 3 images of the chest were obtained in the operating room with an image intensifier. N o radiologist was in attendance. Fluoroscopy time is 148 seconds. COMPARISON: No prior study is available for comparison. FINDINGS: Images demonstrate placement of a dual lead permanent pacemaker via the left subclavian vein. IMPRESSION: 1. Intraoperative imaging of the chest for pacemaker placement. RPTAT: QQ .Walter Mcqueen MD, MD Date Time Electronically viewed and signed by .Walter Mcqueen MD, MD on 03/31/2017 18:04 .R/
--- NOTE | 2017-03-31 18:59 | RADRPT ---
PROCEDURE: XR Chest. CLINICAL INDICATION: Status post pacemaker insertion in PACU TECHNIQUE: Single frontal view of the chest was obtained COMPARISON: 03/25/2017 FINDINGS: No pleural effusion or pneumothorax. No consolidation. Top normal cardiac silhouette. Dilated aortic arch suggestive of chronic systemic hypertension. Inte rval placement of a left chest wall pacemaker / AICD with leads project over the right atrial append age and right ventricle. Elevated left hemidiaphragm. Mild interstitial pulmonary edema. No acute osseous abnormality. IMPRESSION: Stable mild interstitial pulmonary edema. Interval placement of a pacemaker / AICD. RPTAT: EE Physician Talat Date Time Electronically viewed and signed by Physician Talat on 03/31/2017 18:59 /
[2017-03-31] MEDS: TAMSULOSIN (SR) 0.4 MG CAP PO SCH (21:14)
[2017-03-31] MEDS: CEFAZOLIN 1 GM/50 ML (PMX) 50 ML IVPB SCH (21:14)
--- NOTE | 2017-03-31 22:09 | OPR ---
DATE OF OPERATION: 03/31/2017 CARDIAC ELECTROPHYSIOLOGY PROCEDURE REPORT INDICATION FOR THE PROCEDURE: Sick sinus syndrome and tachybrady syndrome and episodes of atrial flutter and sinus rhythm, with significant pauses up to 3.1 seconds, resulting in syncope. The patient has sick sinus syndrome and requires a pacemaker. REFERRING PHYSICIAN: Miguel Ángel Bean MD Thank you, Dr. Bean, for allowing me to participate in the care of your patient. OPERATION PERFORMED: 1. Implantation of a dual-chamber [employer] MRI-safe pacemaker. 2. Implantation of a right atrial lead. 3. Implantation of a right ventricular lead. 4. Right atrial pacing and recording. 5. Right ventricular pacing and recording. 6. Catheter placement from the superior vena cava x2. 7. Central line placement and removal. 8. Contrast venography of the left subclavian vessel. 9. Fluoroscopy and fluoroscopic insertion with guide needle placement into the vessel. 10. O2 sat monitoring, blood pressure monitoring and defibrillator pathways both anteriorly and posteriorly. 11. Autonomic nervous system interrogation. OPERATIVE PROCEDURE: After informed consent was obtained by the patient, the patient was brought into the Cardiac Operating Room, where the patient's left chest and neck region was prepped and draped in the usual sterile fashion. Following this, 1 percent lidocaine was used to infiltrate the left delta pectoral groove. Following this, central line was placed in the left subclavian vessel and via the central line, leads were placed into the right atrium and right ventricle. No complications occurred. Following this, the patient had pacing of the right atrium and right ventricle and then following this, the patient then had the device brought to the field. The device and leads were connected to each other and placed into the pocket. The pocket was sutured using 2-0 Vicryl and 4-0 Vicryl, and the patient left the Cardiac Operating Room in stable condition. IMPLANTED MATERIALS: A dual-chamber [employer] MRI-safe pacemaker, with no complications. The patient's pacing recording was performed, and they were acceptable. Please see the implant sheet for details. IMPRESSION: Successful implantation of a dual-chamber pacemaker, with no complications. Dictated By: Andrew Walton MD /[email or web address]/jarek /Document#: [id number]
[2017-04-01] VITALS (12 sets, daily range): BP systolic 115–155; BP diastolic 60–74; PULSE 60–69; RESP 18–20
[2017-04-01] MEDS: PANTOPRAZOLE (EC) 40 MG TAB PO SCH (05:45)
[2017-04-01] MEDS: CEFAZOLIN 1 GM/50 ML (PMX) 50 ML IVPB SCH (05:46)
[2017-04-01] MEDS: LEVOTHYROXINE 100 MCG TAB PO SCH (08:22)
[2017-04-01] MEDS: AMLODIPINE 2.5 MG TAB PO SCH (08:22)
[2017-04-01] MEDS: DOCUSATE SODIUM 100 MG CAP PO SCH ×2 (08:22→20:30)
--- NOTE | 2017-04-01 12:13 | PN ---
DATE: 04/01/2017 SUBJECTIVE DATA: The patient had a PermCath placed yesterday without any complications. No other events noted. OBJECTIVE DATA: VITAL SIGNS: Blood pressure 115/74, respirations 20, pulse 60, and temperature 97.5. HEENT: Head is normocephalic. NECK: Supple. HEART: Regular rate. LUNGS: Show diminished breath sounds at the base. ABDOMEN: Soft, nontender to palpation. No rebound or guarding. EXTREMITIES: Negative for clubbing, cyanosis. No edema. DERMATOLOGIC: Clean. No rashes. MUSCULOSKELETAL: No joint effusion. NEUROLOGIC: Unchanged exam. MEDICATIONS: Reviewed. LABORATORY AND DIAGNOSTIC DATA: Has been reviewed. ASSESSMENT AND PLAN: 1. Nonoliguric acute kidney injury on top of chronic kidney disease, etiology secondary hemodynamics. Renal function has improved. Continue current treatment plan. Supportive care. Renally dose all meds. 2. Hyponatremia. Improved. Continue to limit free water intake. 3. Anemia. Monitor hemoglobin and hematocrit levels. 4. Mineral bone disorder. Monitor calcium and phosphorus levels. 5. Arrhythmia, status post-pacemaker placement. 6. Hypertension. Continue current blood pressure regimen. 7. Acute hemorrhagic cerebrovascular accident with right arm weakness. Continue to monitor. Continue physical therapy. 8. Benign prostatic hypertrophy. Continue medical management. 9. Hypothyroidism. 10. Dyslipidemia. Continue statin therapy. Dictated By: Lee Pagan DO /[email or web address]/[email or web address] /Document#: [id number]
[2017-04-01] MEDS ORDERED: AMLO2.5T78 PO (13:54)
--- NOTE | 2017-04-01 15:00 | DS ---
Date/Time of Note Date/Time of Note DATE: 04/01/17 TIME: 14:51 Discharge Summary Admission/Discharge Info Admit Date/Time Mar 25, 2017 at 10:53 Discharge Date/Time Discharge Diagnosis 1. Acute left frontal hemorrhage with right hand weakness, continue PT/OT 2. Syncope due to long pause(3.1 seconds), pacemaker, follow up with cardiology 3. Paroxysmal A FIb, sinus now, on amiodarone, no anticoagulation 3. Hypertension, add norvasc 4. Hypothyroidism, on supplement 5. BPH: Continue flomax 6. DVT prophylaxis: SCD's Patient Condition: Stable Hx of Present Illness This is an 89-year-old male history of stroke, atrial fibrillation, no longer taking anticoagulation who presents to the emergency room with loss of function of his right hand. He states around midnight tonight he was tossing and turning in bed and noticed that he could not move his right hand. He denies any headaches. He states that his primary care physician has asked him to stop all blood pressure medications and he has not been taking them for approximately the last 1-2 months. he denies any chest pain or shortness of breath. No slurred speech. He denies any other further neurological symptoms. Hospital Course Patient has right upper extremity especially right wrist and hand weakness. CT scan revealed acute intraparenchymal left frontal hemorrhage near the vertex. Minimal surrounding edema. No significant mass effect. Repeated CT scan no aggressive changes. Patient has been managed with PT/OT. Patient will be transferred to acute rehab for physical therapy and occupational therapy. Patient had one syncope spell with long pause at 3.1 seconds on ECG on 03/29/2017 , that he got pacemaker implanted on 03/31/2017 without complication. Patient has paroxysmal atrial fibrillation, on amiodarone, sinus rhythm now. Amiodarone was shortly stopped due to bradyarrhythmia. I will resume his amiodarone since he has pacemaker. He is not a candidate for anticoagulation due to intracranial hemorrhage. Home Meds Active Scripts Amlodipine Besylate* (Amlodipine Besylate*) 2.5 Mg Tablet, 5 MG PO DAILY for 30 Days, TAB Prov:KYLAH SUTHERLAND MD 04/01/17 Reported Medications Tamsulosin Hcl* (Tamsulosin Hcl*) 0.4 Mg Cap.er.24h, 0.4 MG PO HS, CAP 03/25/17 Simvastatin* (Zocor*) 20 Mg Tablet, 20 MG PO QHS, #30 TAB 03/25/17 Levothyroxine Sodium* (Levothyroxine Sodium*) 100 Mcg Tablet, 100 MCG PO BEFORE BREAKFAST, #30 TAB 03/25/17 Amiodarone Hcl* (Amiodarone Hcl*) 200 Mg Tablet, 200 MG PO DAILY, #30 TAB 03/25/17 Discontinued Reported Medications Cefuroxime Axetil* (Cefuroxime Axetil*) 500 Mg Tablet, 500 MG PO BID, TAB 03/25/17 Follow-up Plan PCP/neurology/cardiology one week Primary Care Provider Not On Staff Doctor KYLAH SUTHERLAND MD Apr 01, 2017 15:00
--- NOTE | 2017-04-01 19:00 | CONS ---
Date/Time of Note Date/Time of Note DATE: 04/01/17 TIME: 18:57 Assessment/Plan Assessment/Plan Chief Complaint/Hosp Course Assessment: Syncope secondary to sinus pause (3.1 seconds) - status post dual-chamber [employer] MRI-safe pacemaker 03/31/2017 Acute hemorrhagic stroke with prior history of hemorrhagic stroke - per neurology Paroxysmal atrial fibrillation - currently sinus rhythm Accelerated hypertension - blood pressures now improved Acute kidney injury on chronic kidney disease Dyslipidemia Hypothyroidism Benign prostate hyperplasia Recommendations: -restart on amiodarone 200mg daily -no anticoagulant or antiplatelet therapy due to recurrent hemorrhagic strokes -continue amlodipine 5mg daily -echocardiogram showed LVEF 70% -discharge planning, stable for discharge from cardiac standpoint Problems: Consultation Date/Type/Reason Admit Date/Time Mar 25, 2017 at 10:53 Initial Consult Date 03/25/17 Type of Consultation: Cardiology Referring Provider: MARIETTA ROJAS MD 24 HR Interval Summary Free Text/Dictation Status post permanent pacemaker implantation yesterday. Doing well post procedure. Detailed Summary Additional Comments 14 point review of systems without changes. Exam/Review of Systems Vital Signs Vitals Vital Signs Date Time Temp Pulse Resp B/P Pulse Ox O2 Delivery O2 Flow Rate FiO2 04/01/17 16:56 64 04/01/17 15:28 97.9 20 116/60 97 04/01/17 07:53 Nasal Cannula 2.0 Intake and Output 03/31/17 03/31/17 04/01/17 15:00 23:00 07:00 Intake Total 500 ml 500 ml Output Total 760 ml 400 ml Balance -260 ml 100 ml Exam Constitutional: alert, well developed Psych: nl mood/affect, no complaints Head: atraumatic, normocephalic Eyes: nl conjunctiva, nl lids ENMT: nl external ears & nose, nl nasal mucosa & septum Neck: non-tender, supple, No jvd Respiratory: clear to auscultation, normal air movement Cardiovascular: regular rate and rhythm Gastrointestinal: non-tender, soft Musculoskeletal: muscle weakness (right upper extremity) Extremities: No clubbing, No cyanosis, No edema 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: nl mental status, nl speech Results Result Diagram: 03/30/1761603/30/17616 Medications Medications Current Medications Ondansetron HCl (Zofran Inj) 4 mg Q6H PRN IV NAUSEA AND/OR VOMITING; Start 03/25 at 03:00 Acetaminophen (Tylenol Liquid) 650 mg Q6H PRN PO PAIN LEVEL 1-3 OR FEVER Last administered on 03/27/17 05:32; Admin Dose 650 MG; Start 03/25/17 at 03:00 Docusate Sodium (Colace) 100 mg Q12H PRN PO CONSTIPATION; Start 03/25/17 at 03: 00 Bisacodyl (Dulcolax) 5 mg DAILY PRN PO CONSTIPATION Last administered on 05:58; Admin Dose 5 MG; Start 03/25/17 at 03:00 Acetaminophen (Tylenol Tab) 650 mg Q4H PRN PO TEMP GREATER THAN 99.6F Last administered on 03/31/17 08:07; Admin Dose 650 MG; Start 03/25/17 at 03:00 Docusate Sodium (Colace) 100 mg BID PO Last administered on 04/01/17 08:22; Admin Dose 100 MG; Start 03/25/17 at 09:00 Lorazepam (Ativan) 2 mg Q4 PRN IV AGITATION/ANXIETY; Start 03/25/17 at 21:00 Tamsulosin HCl (Flomax) 0.4 mg HS PO Last administered on 03/31/17 21:14; Admin Dose 0.4 MG; Start 03/26/17 at 21:00 Zolpidem Tartrate (Ambien) 5 mg HS PRN PO INSOMNIA Last administered on 21:25; Admin Dose 5 MG; Start 03/26/17 at 21:30 Pantoprazole (Protonix Tab) 40 mg DAILY@06 PO Last administered on 04/01/17 05 :45; Admin Dose 40 MG; Start 03/29/17 at 06:00 Amlodipine Besylate (Norvasc) 5 mg DAILY PO Last administered on 04/01/17 08: 22; Admin Dose 5 MG; Start 03/31/17 at 09:00 MARIETTA ROJAS MD Apr 01, 2017 19:00
--- NOTE | 2017-04-01 20:16 | RADRPT ---
Vent Rate: 62 bpm RR Interval: 0 msec [place] Interval: 222 msec QRS Duration: 160 msec QT Interval: 474 msec QTC Interval: 481 msec P-R-T [place]: 73 - -64 - 4 degrees Sinus rhythm with 1st degree AV block Right bundle branch block Left anterior fascicular block Bifascicular block Septal infarct , age undetermined Abnormal ECG Electronically Signed By: Nilo Sullivan [id number]
[2017-04-01] MEDS: TAMSULOSIN (SR) 0.4 MG CAP PO SCH (20:30)
[2017-04-02] VITALS (10 sets, daily range): BP systolic 67–156; BP diastolic 64–143; PULSE 60–66; RESP 17–21
[2017-04-02] MEDS: PANTOPRAZOLE (EC) 40 MG TAB PO SCH (06:16)
[2017-04-02] MEDS: LEVOTHYROXINE 100 MCG TAB PO SCH (06:16)
[2017-04-02 07:49] LABS: CREATININE 1.38 mg/dl (0.61-1.24); MAGNESIUM 2.2 mg/dl (1.7-2.5); PHOSPHORUS 3.3 mg/dl (2.5-4.9); POTASSIUM 4.2 mmol/L (3.5-5.1)
[2017-04-02] MEDS: DOCUSATE SODIUM 100 MG CAP PO SCH (08:13)
[2017-04-02] MEDS: AMLODIPINE 2.5 MG TAB PO SCH (08:14)
--- NOTE | 2017-04-02 12:25 | PN ---
Date/Time of Note Date/Time of Note DATE: 04/02/17 TIME: 12:22 Assessment/Plan VTE Prophylaxis VTE Prophylaxis Intervention: contraindicated Lines/Catheters [facility] Saline Lock Urinary Cath still in place: No Assessment/Plan Problems: (1) Heart block Status: Acute Comment: Patient now has a pacemaker in which allows us to use the amiodarone for the intermittent atrial fibrillation. Please note he cannot be anticoagulated due to the second recent hemorrhagic CVA. Once he is fully recovered from this than that anticoagulation question can be revisited which would be in roughly 6 weeks but more comfortably 12 weeks. (2) Status cardiac pacemaker Status: Acute Comment: Operational (3) Hemorrhagic stroke Status: Acute Comment: To go to an [facility] for rehabilitative care Subjective 24 Hr Interval Summary Free Text/Dictation Patient remains in the hospital. He reports he is doing well although he is disappointed that he has not gained function back in his right handyet. Constitutional: no complaints Respiratory: no complaints Cardiovascular: no complaints Gastrointestinal: no complaints Exam/Review of Systems Vital Signs Vitals Vital Signs Date Time Temp Pulse Resp B/P Pulse Ox O2 Delivery O2 Flow Rate FiO2 04/02/17 12:03 64 04/02/17 11:33 97.7 17 139/67 95 04/02/17 01:45 2.0 04/01/17 07:53 Nasal Cannula Intake and Output 04/01/17 04/01/17 04/02/17 15:00 23:00 07:00 Intake Total 1140 ml 800 ml Output Total 800 ml Balance 340 ml 800 ml Exam Constitutional: alert, oriented Respiratory: clear to auscultation, normal air movement Cardiovascular: nl pulses, regular rate and rhythm Gastrointestinal: nl liver, spleen, non-tender, soft Results Result Diagram: 03/30/17 0617 04/02/17 0635 Results 24 hrs Laboratory Tests Test 04/02/17 06:35 Sodium Level 136 Potassium Level 4.2 Chloride Level 103 Carbon Dioxide Level 29 Anion Gap 8 Blood Urea Nitrogen 44 H Creatinine 1.38 H Glucose Level 123 Calcium Level 9.0 Phosphorus Level 3.3 Magnesium Level 2.2 Medications Medications Current Medications Ondansetron HCl (Zofran Inj) 4 mg Q6H PRN IV NAUSEA AND/OR VOMITING; Start 03/25 at 03:00 Acetaminophen (Tylenol Liquid) 650 mg Q6H PRN PO PAIN LEVEL 1-3 OR FEVER Last administered on 03/27/17 05:32; Admin Dose 650 MG; Start 03/25/17 at 03:00 Docusate Sodium (Colace) 100 mg Q12H PRN PO CONSTIPATION; Start 03/25/17 at 03: 00 Bisacodyl (Dulcolax) 5 mg DAILY PRN PO CONSTIPATION Last administered on 05:58; Admin Dose 5 MG; Start 03/25/17 at 03:00 Acetaminophen (Tylenol Tab) 650 mg Q4H PRN PO TEMP GREATER THAN 99.6F Last administered on 03/31/17 08:07; Admin Dose 650 MG; Start 03/25/17 at 03:00 Docusate Sodium (Colace) 100 mg BID PO Last administered on 04/02/17 08:13; Admin Dose 100 MG; Start 03/25/17 at 09:00 Lorazepam (Ativan) 2 mg Q4 PRN IV AGITATION/ANXIETY; Start 03/25/17 at 21:00 Tamsulosin HCl (Flomax) 0.4 mg HS PO Last administered on 04/01/17 20:30; Admin Dose 0.4 MG; Start 03/26/17 at 21:00 Zolpidem Tartrate (Ambien) 5 mg HS PRN PO INSOMNIA Last administered on 21:25; Admin Dose 5 MG; Start 03/26/17 at 21:30 Pantoprazole (Protonix Tab) 40 mg DAILY@06 PO Last administered on 04/02/17 06 :16; Admin Dose 40 MG; Start 03/29/17 at 06:00 Amlodipine Besylate (Norvasc) 5 mg DAILY PO Last administered on 04/02/17 08: 14; Admin Dose 5 MG; Start 03/31/17 at 09:00 FARHAN ALY MD Apr 02, 2017 12:25
--- NOTE | 2017-04-02 12:32 | PN ---
Date/Time of Note Date/Time of Note DATE: 04/02/17 TIME: 12:31 Assessment/Plan VTE Prophylaxis VTE Prophylaxis Intervention: other Lines/Catheters [facility] Saline Lock Urinary Cath still in place: No Assessment/Plan Chief Complaint/Hosp Course SUBJECTIVE DATA: The patient had a PermCath placed yesterday without any complications. No other events noted. OBJECTIVE DATA: HEENT: Head is normocephalic. NECK: Supple. HEART: Regular rate. LUNGS: Show diminished breath sounds at the base. ABDOMEN: Soft, nontender to palpation. No rebound or guarding. EXTREMITIES: Negative for clubbing, cyanosis. No edema. DERMATOLOGIC: Clean. No rashes. MUSCULOSKELETAL: No joint effusion. NEUROLOGIC: Unchanged exam. MEDICATIONS: Reviewed. LABORATORY AND DIAGNOSTIC DATA: Has been reviewed. ASSESSMENT AND PLAN: 1. Nonoliguric acute kidney injury on top of chronic kidney disease, etiology secondary hemodynamics. Renal function has improved. Continue current treatment plan. Supportive care. Renally dose all meds. 2. Hyponatremia. Improved. Continue to limit free water intake. 3. Anemia. Monitor hemoglobin and hematocrit levels. 4. Mineral bone disorder. Monitor calcium and phosphorus levels. 5. Arrhythmia, status post-pacemaker placement. 6. Hypertension. Continue current blood pressure regimen. 7. Acute hemorrhagic cerebrovascular accident with right arm weakness. Continue to monitor. Continue physical therapy. 8. Benign prostatic hypertrophy. Continue medical management. 9. Hypothyroidism. 10. Dyslipidemia. Continue statin therapy. Problems: Exam/Review of Systems Vital Signs Vitals Vital Signs Date Time Temp Pulse Resp B/P Pulse Ox O2 Delivery O2 Flow Rate FiO2 04/02/17 12:03 64 04/02/17 11:33 97.7 17 139/67 95 04/02/17 01:45 2.0 04/01/17 07:53 Nasal Cannula Intake and Output 04/01/17 04/01/17 04/02/17 15:00 23:00 07:00 Intake Total 1140 ml 800 ml Output Total 800 ml Balance 340 ml 800 ml Results Result Diagram: 03/30/17 0617 04/02/17 0635 Results 24 hrs Laboratory Tests Test 04/02/17 06:35 Sodium Level 136 Potassium Level 4.2 Chloride Level 103 Carbon Dioxide Level 29 Anion Gap 8 Blood Urea Nitrogen 44 H Creatinine 1.38 H Glucose Level 123 Calcium Level 9.0 Phosphorus Level 3.3 Magnesium Level 2.2 Medications Medications Current Medications Ondansetron HCl (Zofran Inj) 4 mg Q6H PRN IV NAUSEA AND/OR VOMITING; Start 03/25 at 03:00 Acetaminophen (Tylenol Liquid) 650 mg Q6H PRN PO PAIN LEVEL 1-3 OR FEVER Last administered on 03/27/17 05:32; Admin Dose 650 MG; Start 03/25/17 at 03:00 Docusate Sodium (Colace) 100 mg Q12H PRN PO CONSTIPATION; Start 03/25/17 at 03: 00 Bisacodyl (Dulcolax) 5 mg DAILY PRN PO CONSTIPATION Last administered on 05:58; Admin Dose 5 MG; Start 03/25/17 at 03:00 Acetaminophen (Tylenol Tab) 650 mg Q4H PRN PO TEMP GREATER THAN 99.6F Last administered on 03/31/17 08:07; Admin Dose 650 MG; Start 03/25/17 at 03:00 Docusate Sodium (Colace) 100 mg BID PO Last administered on 04/02/17 08:13; Admin Dose 100 MG; Start 03/25/17 at 09:00 Lorazepam (Ativan) 2 mg Q4 PRN IV AGITATION/ANXIETY; Start 03/25/17 at 21:00 Tamsulosin HCl (Flomax) 0.4 mg HS PO Last administered on 04/01/17 20:30; Admin Dose 0.4 MG; Start 03/26/17 at 21:00 Zolpidem Tartrate (Ambien) 5 mg HS PRN PO INSOMNIA Last administered on 21:25; Admin Dose 5 MG; Start 03/26/17 at 21:30 Pantoprazole (Protonix Tab) 40 mg DAILY@06 PO Last administered on 04/02/17 06 :16; Admin Dose 40 MG; Start 03/29/17 at 06:00 Amlodipine Besylate (Norvasc) 5 mg DAILY PO Last administered on 04/02/17 08: 14; Admin Dose 5 MG; Start 03/31/17 at 09:00 ANMOL HOUSE DO Apr 02, 2017 12:32
== END 2017-04-02 17:48 | DRG 40 ==
LOC: E/R 01:14 → MS4 10:53
PROVIDERS: ADMIT Family Medicine; ATTEND Family Medicine
PROC: 02H63JZ Insertion of Pacemaker Lead into Right Atrium, Percutaneous Approach (ICD-10-PCS; 2017-03-31)
PROC: 02HK3JZ Insertion of Pacemaker Lead into Right Ventricle, Percutaneous Approach (ICD-10-PCS; 2017-03-31)
PROC: 0JH606Z Insertion of Pacemaker, Dual Chamber into Chest Subcutaneous Tissue and Fascia, Open Approach (ICD-10-PCS; principal; 2017-03-31 16:30)
DX: I61.0 Nontraumatic intracerebral hemorrhage in hemisphere, subcortical (principal); G93.6 Cerebral edema; N17.9 Acute kidney failure, unspecified; G81.91 Hemiplegia, unspecified affecting right dominant side; I48.91 Unspecified atrial fibrillation; E87.1 Hypo-osmolality and hyponatremia; I12.9 Hypertensive chronic kidney disease with stage 1 through stage 4 chronic kidney disease, or unspecified chronic kidney disease; R55 Syncope and collapse; I16.1 Hypertensive emergency; N18.9 Chronic kidney disease, unspecified; N40.0 Benign prostatic hyperplasia without lower urinary tract symptoms; Z86.73 Personal history of transient ischemic attack (TIA), and cerebral infarction without residual deficits; E03.9 Hypothyroidism, unspecified; I69.122 Dysarthria following nontraumatic intracerebral hemorrhage; I49.5 Sick sinus syndrome
CPT/HCPCS: 36415; 70450; 70544; 70553; 71010; 71020; 76775; 80048; 80307; 81001; 81003; 82043; 82962; 83036; 83735; 83880; 83935; 84100; 84155; 84300; 84443; 84484; 85025; 85610; 85730; 92610; 93005; 93306; 95819; 96374; 96375; 97003; 97110; 97116; 97162; 97164; 97167; 97530; 97535; C9113; J0360; J0690; J1100; J2060; J2370; J2405; J2765; J7030; J7050; Q9967